=== PATIENT | female | born 1960 | race African-American/Black ===

== ENCOUNTER 2016-09-07 12:39 | Inpatient (IN) | payer OTHER ==
[2016-09-07 14:02] VITALS: BMI 26.6
--- NOTE | 2016-09-07 16:35 | HP ---
CIWA Score - CIWA Score Nausea/Vomitin-Mild Nausea/No Vomiting Muscle Tremors: 4-Moderate,w/Arms Extend Anxiety: 4-Mod. Anxious/Guarded Agitation: 4-Moderately Restless Paroxysmal Sweats: 2 Orientation: 0-Oriented (patient treated at [facility] , DISCHARGED 09/07/16) Tacttile Disturbances: 3-Moderate Itch/Numb/Burn Auditory Disturbances: 0-None Visual Disturbances: 0-None Headache: 0-None Present CIWA-Ar Total Score: 18 Admission ROS S - HPI Chief Complaint: WITHDRAWAL SX Allergies/Adverse Reactions: Allergies Allergy/AdvReac Type Severity Reaction Status Date / Time aspirin Allergy Severe Hives Verified 09/07/16 16:03 divalproex sodium Allergy Severe Verified 09/07/16 16:03 [From Depakote] risperidone [From Risperdal] Allergy Severe Verified 09/07/16 16:03 History of Present Illness: 56 YEARS OLD FEMALE WITH LONG HISTORY OF ALCOHOL NICOTINE DEPENDENCE, HAS DIABETES II, HYPERTENSION, HIV, HEPATITIS C, ASTHMA SEIZURE AND BIPOLAR, LONGEST SOBRIETY 6 YEARS IS ADMITTED TO DETOX Exam Limitations: No Limitations - Ebola screening Have you traveled outside of the country in the last 21 days: No Have you had contact with anyone from an Ebola affected area: No Have you been sick,other than usual withdrawal symptoms: No Do you have a fever: No - Review of Systems Constitutional: Chills, Changes in sleep EENT: reports: Hearing Loss (LEFT EAR), Dental Problems (POOR DENTITION), Other (HISTORY OF LEFT EYE CATARACT, 2013 LENS PLACEMENT) Respiratory: reports: Cough, SOB with Exertion Cardiac: reports: Palpitations GI: reports: Diarrhea, Poor Fluid Intake, Indigestion, Abdominal cramping : reports: No Symptoms Reported Musculoskeletal: reports: No Symptoms Reported Integumentary: reports: Pruritus (ON AND OFF X "YEARS") Neuro: reports: Seizure (1994 TREATED LAST EPISODE 09/06/16), Tremors Endocrine: reports: No Symptoms Reported Hematology: reports: No Symptoms Reported Psychiatric: reports: Judgement Intact, Anxious, Depressed Other Systems: Reviewed and Negative Patient History - Patient Medical History Hx Anemia: No Hx Asthma: Yes Hx Chronic Obstructive Pulmonary Disease (COPD): No Hx Cancer: No Hx Cardiac Disorders: No Hx Congestive Heart Failure: No Hx Hypertension: Yes (on meds.) Hx Hypercholesterolemia: No Hx Pacemaker: No HX Cerebrovascular Accident: No Hx Seizures: Yes (last seizure in 2014) Hx Dementia: No Hx Diabetes: Yes Hx Gastrointestinal Disorders: Yes Hx Liver Disease: No Hx Genitourinary Disorders: No Hx Sexually Transmitted Disorders: No Hx Renal Disease (ESRD): No Hx Hepatitis C: Yes Hx Depression: No Hx Suicide Attempt: Yes (Tried to hang herself in 2014) Hx Bipolar Disorder: No Hx Schizophrenia: Yes - Patient Surgical History Past Surgical History: Yes Hx Neurologic Surgery: No Hx Cataract Extraction: Yes (L EYE) Hx Cardiac Surgery: No Hx Lung Surgery: No Hx Breast Surgery: No Hx Breast Biopsy: No Hx Abdominal Surgery: No Hx Appendectomy: No Hx Cholecystectomy: No Hx Genitourinary Surgery: No Hx Section: No Hx Orthopedic Surgery: No Hx Hysterectomy: No Anesthesia Reaction: No - PPD History Previous Implant?: Yes Documented Results: Negative w/o proof Implanted On Prior R Admission?: No PPD to be Administered?: Yes - Reproductive History Patient is a Female of Child Bearing Age (11 -55 yrs old): No Patient : No - Smoking Cessation Smoking history: Current every day smoker Have you smoked in the past 12 months: Yes Aproximately how many cigarettes per day: 10 Cigars Per Day: 0 Hx Chewing Tobacco Use: No Initiated information on smoking cessation: Yes 'Breaking Loose' booklet given: 09/07/16 - Substance & Tx. History Hx Alcohol Use: Yes Hx Substance Use: No Substance Use Type: Alcohol Hx Substance Use Treatment: Yes - Substances Abused Alcohol Route: Oral Frequency: Daily Amount used: FIFTH OF VODKA/ 3-4 40 OZ BEERS Age of first use: 54 Date of Last Use: 09/06/16 Family Disease History - Family Disease History Family Disease History: Diabetes: Mother (WISAM), Sister, Heart Disease: Father, CA: Sister, Respiratory: Sister, Other: Mother Admission Physical Exam [facility] - Vital Signs Vital Signs: Vital Signs - 24 hr 09/07/16 13:59 Temperature 97.0 F L Pulse Rate 102 H Respiratory 20 Rate Blood Pressure 157/107 - Physical General Appearance: Yes: Nourished, Appropriately Dressed, Mild Distress, Tremorous, Irritable, Sweating, Anxious HEENTM: Yes: Hearing grossly Normal, Normal ENT Inspection, Normocephalic, Normal Voice Respiratory: Yes: Chest Non-Tender, Lungs Clear, Normal Breath Sounds, No Respiratory Distress, No Accessory Muscle Use Neck: Yes: Supple, Trachea in good position Breast: Yes: Breasts Symetrical Cardiology: Yes: Regular Rhythm, S1, S2, Tachycardia Abdominal: Yes: Within Normal Limits Genitourinary: Yes: Within Normal Limits Back: Yes: Normal Inspection Musculoskeletal: Yes: full range of Motion, Gait Steady Extremities: Yes: Normal Inspection, Normal Range of Motion, Non-Tender, Tremors Neurological: Yes: Alert, Motor Strength 5/5, Normal Response, Numbness ( DIABETES NEUROPATHY), Depressed Affect Integumentary: Yes: Warm, Moist Lymphatic: Yes: Within Normal Limits - Diagnostic (1) Alcohol dependence with uncomplicated withdrawal Current Visit: Yes Status: Acute (2) Diabetes mellitus type II, controlled Current Visit: Yes Status: Acute Qualifiers: Diabetes mellitus complication status: with neurologic complications Diabetes mellitus complication detail: with polyneuropathy Diabetes mellitus mcc insulin use: with mcc use Qualified Code(s): E11.42 - Type 2 diabetes mellitus with diabetic polyneuropathy; Z79.4 - intermediate school teacher (current) use of insulin (3) Hypertension Current Visit: Yes Status: Acute Qualifiers: Hypertension type: essential hypertension Qualified Code(s): I10 - Essential (primary) hypertension (4) Nicotine dependence Current Visit: Yes Status: Acute Qualifiers: Nicotine product type: cigarettes Substance use status: uncomplicated Qualified Code(s): F17.210 - Nicotine dependence, cigarettes, uncomplicated (5) HIV (human immunodeficiency virus infection) Current Visit: Yes Status: Chronic (6) Hepatitis C antibody test positive Current Visit: Yes Status: Chronic (7) Asthma Current Visit: Yes Status: Acute Qualifiers: Asthma severity: mild intermittent Asthma complication type: with status asthmaticus Qualified Code(s): J45.22 - Mild intermittent asthma with status asthmaticus (8) Schizophrenia Current Visit: Yes Status: Suspected Qualifiers: Schizophrenia type: disorganized schizophrenia Qualified Code(s): F20.1 - Disorganized schizophrenia (9) Alcohol related seizure Current Visit: Yes Status: Resolved (10) GERD (gastroesophageal reflux disease) Current Visit: Yes Status: Acute Qualifiers: Esophagitis presence: without esophagitis Qualified Code(s): K21.9 - Gastro-esophageal reflux disease without esophagitis (11) Status post extracapsular cataract extraction of left eye Current Visit: Yes Status: Resolved Cleared for Admission [facility] - Detox or Rehab [facility] Level of Care: Medically Managed Detox Regimen/Protocol: Librium [facility] Breath Alcohol Content Breath Alcohol Content: 0 Urine Pregancy Test - Result Urine Test Results: Negative- NO Line Present Urine Drug Screen - Results Drug Screen Negative: No Urine Drug Screen Results: BZO-Benzodiazepines
[2016-09-07] MEDS ORDERED: MAGNESIUM HYDROX 2400MG/30ML ORAL SUSPENSION 30 ML CUP PO PRN (16:43)
[2016-09-07] MEDS ORDERED: P-EPHED 60MG/TRIPROLIDI 2.5MG TABLET PO PRN (16:43)
[2016-09-07] MEDS ORDERED: MAG HYDROX/AL HYDROX/SIMETH 30 ML UNIT-DOSE CUP PO PRN (16:43)
[2016-09-07] MEDS ORDERED: IBUPROFEN 400 MG TABLET (FP) PO PRN (16:43)
[2016-09-07] MEDS ORDERED: LOPERAMIDE HCL 2 MG CAPSULE PO PRN (16:43)
[2016-09-07] MEDS ORDERED: MENTHOL/PHENOL 1 EACH UD MM PRN (16:43)
[2016-09-07] MEDS ORDERED: NICOTINE POLACRILEX 2 MG GUM BC PRN (16:43)
[2016-09-07] MEDS ORDERED: guaiFENesin/D-METHORPHAN HB 10 ML UNIT-DOSE CUPS PO PRN (16:43)
[2016-09-07] MEDS ORDERED: MAGNESIUM CITRATE 300 ML BOTTLE PO PRN (16:43)
[2016-09-07] MEDS ORDERED: ALBUTEROL SO4 6.7 GM HFA INHALER IH PRN (16:48)
[2016-09-07] MEDS ORDERED: chlordiazePOXIDE HCL 25 MG CAPSULE PO ONE (17:15)
[2016-09-07] MEDS: LISINOPRIL 10 MG TABLET (FP) PO SCH (18:20)
[2016-09-07] MEDS: THIAMINE HCL 100 MG TABLET (FP) PO SCH (22:17)
[2016-09-07] MEDS: chlordiazePOXIDE HCL 25 MG CAPSULE PO SCH (22:17)
[2016-09-07] MEDS: diphenhydrAMINE HCL 50 MG CAPSULE PO PRN (22:17)
[2016-09-07] MEDS: RANITIDINE HCL 150 MG TABLET (FP) PO SCH (22:18)
[2016-09-07] MEDS: GABAPENTIN 100 MG CAPSULE (FP) PO SCH (22:18)
[2016-09-07] MEDS: INSULIN SLIDING SCALE (NOVOLOG) 1 VIAL SQ SCH (22:20)
[2016-09-07 23:20] LABS: URINE APPEARANCE SLCLOUDY; URINE BILIRUBIN NEGATIVE (NEGATIVE); URINE BLOOD NEGATIVE (NEGATIVE); URINE COLOR LTYELLOW; URINE GLUCOSE (UA) NEGATIVE (NEGATIVE); URINE KETONE NEGATIVE (NEGATIVE); URINE LEUK ESTERASE NEGATIVE (NEGATIVE); URINE NITRITE NEGATIVE (NEGATIVE); URINE PROTEIN NEGATIVE (NEGATIVE); URINE UROBILINOGEN NEGATIVE E.U./dl (0.2-1.0)
[2016-09-08] MEDS: ATENOLOL 50 MG TABLET (FP) PO SCH ×2 (00:01→10:17)
[2016-09-08] MEDS: hydrOXYzine PAMOATE 50 MG CAPSULE (FP) PO PRN ×2 (00:01→12:27)
[2016-09-08] MEDS: diphenhydrAMINE HCL 50 MG CAPSULE PO PRN (02:39)
[2016-09-08] MEDS: chlordiazePOXIDE HCL 25 MG CAPSULE PO SCH ×4 (05:26→22:15)
[2016-09-08] MEDS: GABAPENTIN 100 MG CAPSULE (FP) PO SCH ×3 (05:26→22:17)
[2016-09-08] MEDS: metFORMIN HCL 500 MG TABLET (FP) PO SCH ×2 (07:08→17:29)
[2016-09-08] MEDS: INSULIN SLIDING SCALE (NOVOLOG) 1 VIAL SQ SCH ×4 (07:08→22:17)
[2016-09-08 10:04] LABS: MCH 30.3 pg (25.7-33.7); MCHC 33.2 g/dl (32.0-36.0); MEAN CELL VOLUME 91.5 fl (80-96); MEAN PLT VOLUME 10.4 fl (7.5-11.1); PLATELET COUNT 98 K/MM3 (134-434); RDW 15.4 % (11.6-15.6); WHITE BLOOD COUNT 3.6 K/mm3 (4.0-10.0)
[2016-09-08] MEDS: PRENATAL VITAMINS W/ FOLIC ACID TABLET (FP) PO SCH (10:17)
[2016-09-08] MEDS: LISINOPRIL 10 MG TABLET (FP) PO SCH (10:17)
[2016-09-08] MEDS: RANITIDINE HCL 150 MG TABLET (FP) PO SCH ×2 (10:17→22:15)
[2016-09-08] MEDS: NICOTINE 14 MG/24 HOURS TOPICAL PATCH TD SCH (10:17)
[2016-09-08 10:47] LABS: ALBUMIN 2.9 g/dl (3.4-5.0); ALK PHOS 115 U/L (45-117); ANION GAP 8 (8-16); BILIRUBIN,TOTAL 0.2 mg/dL (0.2-1.0); CALCIUM 8.1 mg/dL (8.5-10.1); CO2 22 mmol/L (21-32); CREATININE 0.7 mg/dL (0.55-1.02); GLUCOSE,RANDOM 93 mg/dL (74-106); SGOT/AST 39 U/L (15-37); SGPT/ALT 23 U/L (12-78); TOT PROT 6.5 g/dl (6.4-8.2)
--- NOTE | 2016-09-08 11:44 | PN ---
[facility] CIWA - CIWA Score Nausea/Vomitin Muscle Tremors: 3 Anxiety: 3 Agitation: 3 Paroxysmal Sweats: 3 Orientation: 0-Oriented Tacttile Disturbances: 2-Mild Itch/Numbness/Burn Auditory Disturbances: 0-None Visual Disturbances: 0-None Headache: 0-None Present CIWA-Ar Total Score: 16 [facility] Progress Note (SOAP) Subjective: interrupted sleep, sweats, not good , diarrhea , stomach ache Objective: 09/08/16 11:42 Vital Signs Temperature 99.0 F 09/08/16 09:39 Pulse Rate 93 H 09/08/16 09:39 Respiratory Rate 18 09/08/16 09:39 Blood Pressure 143/103 09/08/16 09:39 O2 Sat by Pulse Oximetry (%) Laboratory Tests 09/07/16 09/07/16 09/08/16 16:24 23:00 05:25 WBC RBC Hgb Hct MCV MCHC RDW Plt Count MPV Sodium Potassium Chloride Carbon Dioxide Anion Gap BUN Creatinine Creat Clearance w eGFR POC Glucometer 92 130 Random Glucose Calcium Total Bilirubin AST ALT Alkaline Phosphatase Total Protein Albumin Urine Color Ltyellow Urine Appearance Slcloudy Urine pH 7.0 Ur Specific [place] 1.011 Urine Protein Negative Urine Glucose (UA) Negative Urine Ketones Negative Urine Blood Negative Urine Nitrite Negative Urine Bilirubin Negative Urine Urobilinogen Negative Ur Leukocyte Esterase Negative RPR Titer 09/08/16 09/08/16 09/08/16 07:00 07:00 07:00 WBC 3.6 L RBC 3.27 L Hgb 9.9 L Hct 29.9 L MCV 91.5 MCHC 33.2 RDW 15.4 Plt Count 98 L MPV 10.4 Sodium 142 Potassium 4.0 Chloride 112 H Carbon Dioxide 22 Anion Gap 8 BUN 18 Creatinine 0.7 Creat Clearance w eGFR > 60 POC Glucometer Random Glucose 93 Calcium 8.1 L Total Bilirubin 0.2 AST 39 H ALT 23 Alkaline Phosphatase 115 Total Protein 6.5 Albumin 2.9 L Urine Color Urine Appearance Urine pH Ur Specific [place] Urine Protein Urine Glucose (UA) Urine Ketones Urine Blood Urine Nitrite Urine Bilirubin Urine Urobilinogen Ur Leukocyte Esterase RPR Titer Nonreactive 09/08/16 11:06 WBC RBC Hgb Hct MCV MCHC RDW Plt Count MPV Sodium Potassium Chloride Carbon Dioxide Anion Gap BUN Creatinine Creat Clearance w eGFR POC Glucometer 119 Random Glucose Calcium Total Bilirubin AST ALT Alkaline Phosphatase Total Protein Albumin Urine Color Urine Appearance Urine pH Ur Specific [place] Urine Protein Urine Glucose (UA) Urine Ketones Urine Blood Urine Nitrite Urine Bilirubin Urine Urobilinogen Ur Leukocyte Esterase RPR Titer pt aox3 in nad ambulating Assessment: 09/08/16 11:43 withdrawl sx's Plan: cont. detox increase fluids imodium prn
[2016-09-08] MEDS: chlordiazePOXIDE HCL 25 MG CAPSULE PO PRN (14:37)
--- NOTE | 2016-09-08 15:05 | CONSULT ---
[facility] Psychiatric Consult - Data Date of interview: 09/08/16 Admission source: [facility] Identifying data: First admission to [facility] for this 56 y/o AA female seeking detox treatment on for alcohol dependence.Patient is , a mother of five,unemployed and currently deprived of her SSI benefits ( clerical issues). Substance Abuse History: - Smoking Cessation. Smoking history: Current every day smoker. Have you smoked in the past 12 months: Yes. Aproximately how many cigarettes per day: 10. Cigars Per Day: 0. Hx Chewing Tobacco Use: No. Initiated information on smoking cessation: Yes. 'Breaking Loose' booklet given : 09/07/16. - Substance & Tx. History. Hx Alcohol Use: Yes. Hx Substance Use : No. Substance Use Type: Alcohol. Hx Substance Use Treatment: Yes. - Substances Abused. Alcohol. Route: Oral. Frequency: Daily. Amount used: FIFTH OF VODKA/ 3-4 40 OZ BEERS. Age of first use: 54. Date of Last Use: 09/06. Confirmed by patient. Medical History: Significant for bronchial asthma,HIV infection,hepatitis C, hypertension,diabetes mellitus,seizure disorder (ictal episode as recently as a week ago) and a history of cataract extraction (left eye). Psychiatric History: Self-report of seven psychiatric hospitalizations.Diagnosed with Schizophrenia.Ms Day is known to [facility] (site of her [facility] care),other facilities in [place] and [place].She is on a regimen of zoloft 50 mg/day + seroquel 100 mg/ hs.Patient reports a history of multiple suicide via self-mutilation and hanging (last incident was three years ago). Physical/Sexual Abuse/Trauma History: Patient denies sexual abuse.She continues to be traumatized by incidents experienced during her 15 years of incarceration for homicide. Additional Comment: Urine Drug Screen Results: BZO-Benzodiazepines.Noted. Mental Status Exam - Mental Status Exam Alert and Oriented to: Time, Place, Person Cognitive Function: Good Patient Appearance: Well Groomed Mood: Sad, Withdrawn, Anxious, Apprehensive Affect: Mood Congruent Patient Behavior: Fatigued, Appropriate, Cooperative Speech Pattern: Clear, Appropriate Voice Loudness: Normal Thought Process: Intact, Goal Oriented Thought Disorder: Not Present Hallucinations: Denies Suicidal Ideation: Denies Homicidal Ideation: Denies Insight/Judgement: Fair Sleep: Poorly, Difficulty falling asleep Appetite: Fair Muscle strength/Tone: Normal Gait/Station: Normal Psychiatric Findings - Problem List ([place] 1, 2,3) (1) Alcohol dependence with uncomplicated withdrawal Current Visit: Yes Status: Acute (2) Nicotine dependence Current Visit: Yes Status: Acute Qualifiers: Nicotine product type: cigarettes Substance use status: uncomplicated Qualified Code(s): F17.210 - Nicotine dependence, cigarettes, uncomplicated (3) Diabetes mellitus type II, controlled Current Visit: Yes Status: Acute Qualifiers: Diabetes mellitus complication status: with neurologic complications Diabetes mellitus complication detail: with polyneuropathy 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 Qualified Code(s): E11.42 - Type 2 diabetes mellitus with diabetic polyneuropathy; Z79.4 - correction (current) use of insulin (4) Asthma Current Visit: Yes Status: Chronic Qualifiers: Asthma severity: mild intermittent Asthma complication type: with status asthmaticus Qualified Code(s): J45.22 - Mild intermittent asthma with status asthmaticus (5) GERD (gastroesophageal reflux disease) Current Visit: Yes Status: Chronic Qualifiers: Esophagitis presence: without esophagitis Qualified Code(s): K21.9 - Gastro-esophageal reflux disease without esophagitis (6) Hypertension Current Visit: Yes Status: Chronic Qualifiers: Hypertension type: essential hypertension Qualified Code(s): I10 - Essential (primary) hypertension (7) HIV (human immunodeficiency virus infection) Current Visit: Yes Status: Chronic (8) Hepatitis C antibody test positive Current Visit: Yes Status: Chronic (9) Schizophrenia Current Visit: Yes Status: Suspected Qualifiers: Schizophrenia type: disorganized schizophrenia Qualified Code(s): F20.1 - Disorganized schizophrenia (10) Alcohol related seizure Current Visit: Yes Status: Resolved (11) Status post extracapsular cataract extraction of left eye Current Visit: Yes Status: Resolved - Initial Treatment Plan Initial Treatment Plan: Psychoeducation.Detoxification.Medications :seroquel 100 mg po hs + zoloft 50 mg po daily.Side effects/benefits discussed with patient.She is agreement with this plan of care.Observation.
[2016-09-08] MEDS: QUEtiapine FUMARATE 100 MG TABLET (FP) PO SCH (22:15)
[2016-09-08] MEDS: THIAMINE HCL 100 MG TABLET (FP) PO SCH (22:15)
--- NOTE | 2016-09-08 23:23 | PN ---
[facility] Progress Note Note: bp 172/107 begin metoprolol 50 mg bid first dose now continue detox
[2016-09-08] MEDS ORDERED: METOPROLOL TARTRATE 50 MG TABLET (FP) PO SCH (23:30)
[2016-09-08] MEDS: METOPROLOL TARTRATE 50 MG TABLET (FP) PO SCH (23:30)
[2016-09-09] MEDS: chlordiazePOXIDE HCL 25 MG CAPSULE PO SCH ×3 (05:18→17:15)
[2016-09-09] MEDS: GABAPENTIN 100 MG CAPSULE (FP) PO SCH ×3 (05:18→22:21)
[2016-09-09] MEDS: INSULIN SLIDING SCALE (NOVOLOG) 1 VIAL SQ SCH ×4 (08:00→22:23)
[2016-09-09] MEDS: metFORMIN HCL 500 MG TABLET (FP) PO SCH ×2 (09:18→17:15)
[2016-09-09] MEDS: NICOTINE 14 MG/24 HOURS TOPICAL PATCH TD SCH (10:28)
[2016-09-09] MEDS: SERTRALINE HCL 50 MG TABLET (FP) PO SCH (10:28)
[2016-09-09] MEDS: PRENATAL VITAMINS W/ FOLIC ACID TABLET (FP) PO SCH (10:28)
[2016-09-09] MEDS: RANITIDINE HCL 150 MG TABLET (FP) PO SCH ×2 (10:28→22:21)
[2016-09-09] MEDS: METOPROLOL TARTRATE 50 MG TABLET (FP) PO SCH ×2 (10:28→22:21)
[2016-09-09] MEDS: LISINOPRIL 10 MG TABLET (FP) PO SCH ×2 (10:28→22:21)
[2016-09-09] MEDS: ACETAMINOPHEN 325 MG TABLET (FP) PO PRN (10:32)
--- NOTE | 2016-09-09 11:05 | PN ---
S CIWA - CIWA Score Nausea/Vomitin-No Nausea/No Vomiting Muscle Tremors: 4-Moderate,w/Arms Extend Anxiety: 3 Agitation: 4-Moderately Restless Paroxysmal Sweats: 3 Orientation: 0-Oriented Tacttile Disturbances: 0-None Auditory Disturbances: 0-None Visual Disturbances: 0-None Headache: 0-None Present CIWA-Ar Total Score: 14 [facility] Progress Note (SOAP) Subjective: agitation anxiety sweats shakes body aches Objective: 09/09/16 11:04 Vital Signs Temperature 99.0 F 09/09/16 09:41 Pulse Rate 97 H 09/09/16 09:41 Respiratory Rate 16 09/09/16 09:41 Blood Pressure 147/96 09/09/16 09:41 O2 Sat by Pulse Oximetry (%) Laboratory Tests 09/07/16 09/07/16 09/07/16 16:24 22:20 23:00 WBC RBC Hgb Hct MCV MCHC RDW Plt Count MPV Sodium Potassium Chloride Carbon Dioxide Anion Gap BUN Creatinine Creat Clearance w eGFR POC Glucometer 92 127 Random Glucose Calcium Total Bilirubin AST ALT Alkaline Phosphatase Total Protein Albumin Urine Color Ltyellow Urine Appearance Slcloudy Urine pH 7.0 Ur Specific [place] 1.011 Urine Protein Negative Urine Glucose (UA) Negative Urine Ketones Negative Urine Blood Negative Urine Nitrite Negative Urine Bilirubin Negative Urine Urobilinogen Negative Ur Leukocyte Esterase Negative RPR Titer 09/08/16 09/08/16 09/08/16 05:25 07:00 07:00 WBC 3.6 L RBC 3.27 L Hgb 9.9 L Hct 29.9 L MCV 91.5 MCHC 33.2 RDW 15.4 Plt Count 98 L MPV 10.4 Sodium 142 Potassium 4.0 Chloride 112 H Carbon Dioxide 22 Anion Gap 8 BUN 18 Creatinine 0.7 Creat Clearance w eGFR > 60 POC Glucometer 130 Random Glucose 93 Calcium 8.1 L Total Bilirubin 0.2 AST 39 H ALT 23 Alkaline Phosphatase 115 Total Protein 6.5 Albumin 2.9 L Urine Color Urine Appearance Urine pH Ur Specific [place] Urine Protein Urine Glucose (UA) Urine Ketones Urine Blood Urine Nitrite Urine Bilirubin Urine Urobilinogen Ur Leukocyte Esterase RPR Titer 09/08/16 09/08/16 09/08/16 07:00 11:06 16:28 WBC RBC Hgb Hct MCV MCHC RDW Plt Count MPV Sodium Potassium Chloride Carbon Dioxide Anion Gap BUN Creatinine Creat Clearance w eGFR POC Glucometer 119 112 Random Glucose Calcium Total Bilirubin AST ALT Alkaline Phosphatase Total Protein Albumin Urine Color Urine Appearance Urine pH Ur Specific [place] Urine Protein Urine Glucose (UA) Urine Ketones Urine Blood Urine Nitrite Urine Bilirubin Urine Urobilinogen Ur Leukocyte Esterase RPR Titer Nonreactive 09/09/16 06:20 WBC RBC Hgb Hct MCV MCHC RDW Plt Count MPV Sodium Potassium Chloride Carbon Dioxide Anion Gap BUN Creatinine Creat Clearance w eGFR POC Glucometer 115 Random Glucose Calcium Total Bilirubin AST ALT Alkaline Phosphatase Total Protein Albumin Urine Color Urine Appearance Urine pH Ur Specific [place] Urine Protein Urine Glucose (UA) Urine Ketones Urine Blood Urine Nitrite Urine Bilirubin Urine Urobilinogen Ur Leukocyte Esterase RPR Titer awake/alert ambulating no acute distress Assessment: 09/09/16 11:05 withdrawal sx Plan: continue detox increase fluids analgesic balm motrin 600mg prn
[2016-09-09] MEDS: ATENOLOL 50 MG TABLET (FP) PO SCH (11:11)
--- NOTE | 2016-09-09 12:31 | EKG ---
Test Reason : Blood Pressure : / mmHG Vent. Rate : 095 BPM Atrial Rate : 095 BPM P-R Int : 156 ms QRS Dur : 070 ms QT Int : 352 ms P-R-T Axes : 057 028 026 degrees QTc Int : 442 ms NORMAL SINUS RHYTHM NORMAL ECG NO PREVIOUS ECGS AVAILABLE Confirmed by FAY CURRAN, CONG ([id number]) on 09/09/2016 12:31:14 PM Referred By: Confirmed By:CONG APONTE MD
[2016-09-09] MEDS: chlordiazePOXIDE HCL 25 MG CAPSULE PO PRN (14:02)
[2016-09-09] MEDS: chlordiazePOXIDE 5 MG CAPSULE PO SCH (22:20)
[2016-09-09] MEDS: QUEtiapine FUMARATE 100 MG TABLET (FP) PO SCH (22:21)
[2016-09-09] MEDS: THIAMINE HCL 100 MG TABLET (FP) PO SCH (22:21)
[2016-09-10] MEDS: chlordiazePOXIDE 5 MG CAPSULE PO SCH ×3 (06:18→17:32)
[2016-09-10] MEDS: GABAPENTIN 100 MG CAPSULE (FP) PO SCH ×4 (06:21→22:04)
[2016-09-10] MEDS: INSULIN SLIDING SCALE (NOVOLOG) 1 VIAL SQ SCH ×4 (07:01→22:05)
[2016-09-10] MEDS: metFORMIN HCL 500 MG TABLET (FP) PO SCH ×2 (07:02→17:32)
[2016-09-10] MEDS: cloNIDine HCL 0.1 MG TABLET PO PRN ×2 (07:51→22:04)
[2016-09-10] MEDS: PRENATAL VITAMINS W/ FOLIC ACID TABLET (FP) PO SCH (10:05)
[2016-09-10] MEDS: METOPROLOL TARTRATE 50 MG TABLET (FP) PO SCH ×2 (10:05→22:04)
[2016-09-10] MEDS: RANITIDINE HCL 150 MG TABLET (FP) PO SCH ×2 (10:06→22:03)
[2016-09-10] MEDS: LISINOPRIL 10 MG TABLET (FP) PO SCH ×2 (10:06→22:04)
[2016-09-10] MEDS: ATENOLOL 50 MG TABLET (FP) PO SCH (10:06)
[2016-09-10] MEDS: SERTRALINE HCL 50 MG TABLET (FP) PO SCH (10:06)
[2016-09-10] MEDS: NICOTINE 14 MG/24 HOURS TOPICAL PATCH TD SCH (10:08)
--- NOTE | 2016-09-10 12:45 | PN ---
S Progress Note (SOAP) Objective: 09/10/16 12:44 INTERRUPTED SLEEP 09/10/16 12:44 Vital Signs Temperature 97.7 F 09/10/16 10:05 Pulse Rate 91 H 09/10/16 10:05 Respiratory Rate 18 09/10/16 10:05 Blood Pressure 155/89 09/10/16 10:05 O2 Sat by Pulse Oximetry (%) Laboratory Tests 09/07/16 09/07/16 09/07/16 16:24 22:20 23:00 WBC RBC Hgb Hct MCV MCHC RDW Plt Count MPV Sodium Potassium Chloride Carbon Dioxide Anion Gap BUN Creatinine Creat Clearance w eGFR POC Glucometer 92 127 Random Glucose Calcium Total Bilirubin AST ALT Alkaline Phosphatase Total Protein Albumin Urine Color Ltyellow Urine Appearance Slcloudy Urine pH 7.0 Ur Specific [place] 1.011 Urine Protein Negative Urine Glucose (UA) Negative Urine Ketones Negative Urine Blood Negative Urine Nitrite Negative Urine Bilirubin Negative Urine Urobilinogen Negative Ur Leukocyte Esterase Negative RPR Titer 09/08/16 09/08/16 09/08/16 05:25 07:00 07:00 WBC 3.6 L RBC 3.27 L Hgb 9.9 L Hct 29.9 L MCV 91.5 MCHC 33.2 RDW 15.4 Plt Count 98 L MPV 10.4 Sodium 142 Potassium 4.0 Chloride 112 H Carbon Dioxide 22 Anion Gap 8 BUN 18 Creatinine 0.7 Creat Clearance w eGFR > 60 POC Glucometer 130 Random Glucose 93 Calcium 8.1 L Total Bilirubin 0.2 AST 39 H ALT 23 Alkaline Phosphatase 115 Total Protein 6.5 Albumin 2.9 L Urine Color Urine Appearance Urine pH Ur Specific [place] Urine Protein Urine Glucose (UA) Urine Ketones Urine Blood Urine Nitrite Urine Bilirubin Urine Urobilinogen Ur Leukocyte Esterase RPR Titer 09/08/16 09/08/16 09/08/16 07:00 11:06 16:28 WBC RBC Hgb Hct MCV MCHC RDW Plt Count MPV Sodium Potassium Chloride Carbon Dioxide Anion Gap BUN Creatinine Creat Clearance w eGFR POC Glucometer 119 112 Random Glucose Calcium Total Bilirubin AST ALT Alkaline Phosphatase Total Protein Albumin Urine Color Urine Appearance Urine pH Ur Specific [place] Urine Protein Urine Glucose (UA) Urine Ketones Urine Blood Urine Nitrite Urine Bilirubin Urine Urobilinogen Ur Leukocyte Esterase RPR Titer Nonreactive 09/09/16 09/09/16 09/09/16 06:20 11:19 16:34 WBC RBC Hgb Hct MCV MCHC RDW Plt Count MPV Sodium Potassium Chloride Carbon Dioxide Anion Gap BUN Creatinine Creat Clearance w eGFR POC Glucometer 115 118 110 Random Glucose Calcium Total Bilirubin AST ALT Alkaline Phosphatase Total Protein Albumin Urine Color Urine Appearance Urine pH Ur Specific [place] Urine Protein Urine Glucose (UA) Urine Ketones Urine Blood Urine Nitrite Urine Bilirubin Urine Urobilinogen Ur Leukocyte Esterase RPR Titer 09/09/16 09/10/16 09/10/16 22:19 06:18 11:25 WBC RBC Hgb Hct MCV MCHC RDW Plt Count MPV Sodium Potassium Chloride Carbon Dioxide Anion Gap BUN Creatinine Creat Clearance w eGFR POC Glucometer 102 109 100 Random Glucose Calcium Total Bilirubin AST ALT Alkaline Phosphatase Total Protein Albumin Urine Color Urine Appearance Urine pH Ur Specific [place] Urine Protein Urine Glucose (UA) Urine Ketones Urine Blood Urine Nitrite Urine Bilirubin Urine Urobilinogen Ur Leukocyte Esterase RPR Titer PT AOX3 IN NAD AMBULATING Assessment: 09/10/16 12:45 WITHDRAWL SX;S HTN Plan: CONT. DETOX INCREASE FLUDS D/C IN AM AT 7AM NORVASC 5MG /D
[2016-09-10] MEDS ORDERED: amLODIPine BESYLATE 5 MG TABLET (FP) PO ONE (12:46)
[2016-09-10] MEDS: chlordiazePOXIDE HCL 25 MG CAPSULE PO PRN (15:09)
[2016-09-10] MEDS: ACETAMINOPHEN 325 MG TABLET (FP) PO PRN ×2 (15:09→22:05)
[2016-09-10] MEDS: chlordiazePOXIDE HCL 10 MG CAPSULE PO SCH (22:02)
[2016-09-10] MEDS: QUEtiapine FUMARATE 100 MG TABLET (FP) PO SCH (22:03)
[2016-09-10] MEDS: THIAMINE HCL 100 MG TABLET (FP) PO SCH (22:07)
[2016-09-10 22:43] VITALS: BP 144/87; PULSE 95; TEMP 98.2
[2016-09-11] MEDS: chlordiazePOXIDE HCL 10 MG CAPSULE PO SCH (05:40)
[2016-09-11] MEDS: ACETAMINOPHEN 325 MG TABLET (FP) PO PRN (05:41)
[2016-09-11] MEDS: GABAPENTIN 100 MG CAPSULE (FP) PO SCH (06:37)
[2016-09-11] MEDS: metFORMIN HCL 500 MG TABLET (FP) PO SCH (06:37)
[2016-09-11] MEDS: METOPROLOL TARTRATE 50 MG TABLET (FP) PO SCH (06:38)
[2016-09-11] MEDS: LISINOPRIL 10 MG TABLET (FP) PO SCH (06:38)
[2016-09-11] MEDS: ATENOLOL 50 MG TABLET (FP) PO SCH (06:38)
[2016-09-11] MEDS ORDERED: amLODIPine BESYLATE 5 MG TABLET (FP) PO SCH (10:00)
--- NOTE | 2016-09-11 11:25 | DS ---
[facility] Detox Discharge Summary Admission Date: 09/07/16 Discharge Date: 09/11/16 - History Present History: Alcohol Dependence - Physical Exam Results Vital Signs: Vital Signs Temperature 98.2 F 09/10/16 22:42 Pulse Rate 95 H 09/10/16 22:42 Respiratory Rate 18 09/11/16 00:30 Blood Pressure 144/87 09/10/16 22:42 O2 Sat by Pulse Oximetry (%) - Treatment Hospital Course: Detox Protocol Followed, Detoxed Safely, Responded well, Discharged Condition Good, Rehab Referral Accepted - Medication Discharge Medications: Ambulatory Orders Atenolol [Tenormin -] 50 mg PO DAILY 09/07/16 Clonidine HCl [Catapres -] 0.3 mg PO DAILY 09/07/16 Lisinopril [Prinivil] 10 mg PO DAILY 09/07/16 Metformin HCl [Glucophage -] 500 mg PO BID 09/07/16 Metoprolol Tartrate [Lopressor] 100 mg PO DAILY 09/07/16 Quetiapine Fumarate [Seroquel -] 100 mg PO HS 09/07/16 Sertraline HCl [Zoloft -] 50 mg PO DAILY 09/07/16 Zonisamide [Zonegran -] 300 mg PO DAILY 09/07/16 Quetiapine Fumarate [Seroquel] 100 mg PO HS #30 tablet 09/08/16 Sertraline HCl [Zoloft -] 50 mg PO DAILY #30 tablet 09/08/16 Albuterol Sulfate Inhaler - [Ventolin HFA Inhaler -] 2 puff IH Q4H PRN #1 inhaler 09/10/16 Amlodipine Besylate [Norvasc -] 5 mg PO DAILY #30 tablet 09/10/16 Gabapentin [Neurontin -] 100 mg PO TID #60 capsule 09/10/16 Lisinopril [Prinivil] 10 mg PO BID #60 tablet 09/10/16 Metformin HCl [Glucophage -] 500 mg PO BID@0700,1630 #60 tablet 09/10/16 Metoprolol Tartrate [Lopressor -] 50 mg PO BID #60 tablet 09/10/16 Ranitidine [Zantac -] 150 mg PO BID #60 tablet 09/10/16 - Diagnosis (1) Alcohol dependence with uncomplicated withdrawal Status: Chronic (2) Diabetes mellitus type II, controlled Status: Chronic Qualifiers: Diabetes mellitus complication status: with neurologic complications Diabetes mellitus complication detail: with polyneuropathy 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: with [facility] use Qualified Code(s): E11.42 - Type 2 diabetes mellitus with diabetic polyneuropathy; Z79.4 - halfway (current) use of insulin (3) Nicotine dependence Status: Chronic Qualifiers: Nicotine product type: cigarettes Substance use status: uncomplicated Qualified Code(s): F17.210 - Nicotine dependence, cigarettes, uncomplicated (4) Asthma Status: Chronic Qualifiers: Asthma severity: mild intermittent Asthma complication type: with status asthmaticus Qualified Code(s): J45.22 - Mild intermittent asthma with status asthmaticus (5) GERD (gastroesophageal reflux disease) Status: Chronic Qualifiers: Esophagitis presence: without esophagitis Qualified Code(s): K21.9 - Gastro-esophageal reflux disease without esophagitis (6) HIV (human immunodeficiency virus infection) Status: Chronic (7) Hepatitis C antibody test positive Status: Chronic (8) Hypertension Status: Chronic Qualifiers: Hypertension type: essential hypertension Qualified Code(s): I10 - Essential (primary) hypertension (9) Schizophrenia Status: Suspected Qualifiers: Schizophrenia type: disorganized schizophrenia Qualified Code(s): F20.1 - Disorganized schizophrenia - AMA Did Patient Leave Against Medical Advice: No
== END 2016-09-11 07:00 | disposition home or self-care (01) | DRG 775 ==
LOC: YASAS 12:39 → Y6N 16:45
PROVIDERS: ADMIT Internal Medicine Addiction Medicine; ATTEND Internal Medicine Addiction Medicine
PROC: HZ2ZZZZ Detoxification Services for Substance Abuse Treatment (ICD-10-PCS; principal; 2016-09-07)
DX: F10.230 Alcohol dependence with withdrawal, uncomplicated (principal); F17.210 Nicotine dependence, cigarettes, uncomplicated; F20.1 Disorganized schizophrenia; E11.42 Type 2 diabetes mellitus with diabetic polyneuropathy; Z79.4 Long term (current) use of insulin; J45.22 Mild intermittent asthma with status asthmaticus; K21.9 Gastro-esophageal reflux disease without esophagitis; Z21 Asymptomatic human immunodeficiency virus [HIV] infection status; R00.0 Tachycardia, unspecified; Z98.42 Cataract extraction status, left eye; Z86.69 Personal history of other diseases of the nervous system and sense organs; Z91.5 Personal history of self-harm
CPT/HCPCS: 36415; 80053; 81003; 85027; 86593; 93005; 93010

== ENCOUNTER 2019-02-28 11:28 | Inpatient (IN) | payer OTHER ==
[2019-02-28 13:08] VITALS: BMI 25.8
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
[2019-02-28] MEDS ORDERED: cloNIDine HCL 0.1 MG TABLET PO PRN (14:54)
[2019-02-28] MEDS ORDERED: chlordiazePOXIDE HCL 10 MG CAPSULE PO PRN (14:55)
[2019-02-28] MEDS ORDERED: ACETAMINOPHEN 325 MG TABLET (FP) PO PRN (15:00)
[2019-02-28] MEDS ORDERED: NICOTINE POLACRILEX 2 MG GUM BUC PRN (15:00)
[2019-02-28] MEDS ORDERED: MELATONIN 5 MG TABLETS PO PRN (15:00)
[2019-02-28] MEDS ORDERED: MAGNESIUM HYDROX 2400MG/30ML ORAL SUSPENSION 30 ML CUP PO PRN (15:00)
[2019-02-28] MEDS ORDERED: hydrOXYzine HCL 25 MG TABLET (FP) PO PRN (15:00)
[2019-02-28] MEDS ORDERED: ALBUTEROL SO4 8 GM HFA INHALER IH PRN (15:08)
[2019-02-28] MEDS ORDERED: METHADONE HCL 10 MG TABLET (FOR DETOX USE ONLY) PO ONE (16:00)
[2019-02-28] MEDS ORDERED: PATIENT'S OWN MEDICATION (NON-FORMULARY) (Lipase/Protease/Amylase [Creon Dr 24,000 Units C PO SCH (16:30)
[2019-02-28] MEDS ORDERED: LIPASE/PROTEASE/AMYLASE 36,000 UNIT CAPSULE PO SCH (16:32)
[2019-02-28] MEDS: INSULIN SLIDING SCALE (NOVOLOG) 1 VIAL SQ SCH ×2 (16:36→22:06)
[2019-02-28] MEDS: chlordiazePOXIDE HCL 25 MG CAPSULE PO SCH ×2 (17:01→22:04)
[2019-02-28 17:05] LABS: HEMATOCRIT 29.2 % (32.4-45.2); HEMOGLOBIN 9.7 GM/dL (10.7-15.3); MCH 30.8 pg (25.7-33.7); MCHC 33.2 g/dl (32.0-36.0); MEAN CELL VOLUME 92.6 fl (80-96); MEAN PLT VOLUME 8.9 fl (7.5-11.1); PLATELET COUNT 90 K/MM3 (134-434); RBC 3.16 M/mm3 (3.60-5.2); WHITE BLOOD COUNT 3.8 K/mm3 (4.0-10.0)
[2019-02-28 17:10] LABS: ALBUMIN 3.1 g/dl (3.4-5.0); BILIRUBIN,TOTAL 0.3 mg/dL (0.2-1); BLOOD UREA NITROGEN 16.7 mg/dL (7-18); CALCIUM 8.5 mg/dL (8.5-10.1); POTASSIUM 3.8 mmol/L (3.5-5.1); TOT PROT 7.6 g/dl (6.4-8.2)
[2019-02-28] MEDS: amLODIPine BESYLATE 10 MG TABLET (FP) PO SCH (20:22)
[2019-02-28] MEDS: ATENOLOL 50 MG TABLET (FP) PO SCH (20:22)
[2019-02-28 21:09] LABS: URINE APPEARANCE CLOUDY; URINE BILIRUBIN NEGATIVE (NEGATIVE); URINE COLOR DK YELLOW; URINE GLUCOSE (UA) NEGATIVE (NEGATIVE); URINE KETONE NEGATIVE (NEGATIVE); URINE LEUK ESTERASE NEGATIVE (NEGATIVE); URINE NITRITE NEGATIVE (NEGATIVE); URINE PROTEIN TRACE (NEGATIVE)
[2019-02-28 21:11] LABS: HCG,QUALITATIVE URINE Negative
[2019-02-28] MEDS: THIAMINE HCL 100 MG TABLET (FP) PO SCH (22:04)
[2019-02-28] MEDS: ELVITEG/COB/EMTRI/TENOFO (STRIBILD) TABLET -NF PO SCH (22:05)
[2019-02-28] MEDS: ZONISAMIDE 100 MG CAPSULE PO SCH (22:06)
[2019-03-01] MEDS: chlordiazePOXIDE HCL 25 MG CAPSULE PO SCH ×3 (06:51→22:13)
[2019-03-01] MEDS: INSULIN SLIDING SCALE (NOVOLOG) 1 VIAL SQ SCH ×4 (06:54→22:12)
[2019-03-01] MEDS: LIPASE/PROTEASE/AMYLASE 36,000 UNIT CAPSULE PO SCH ×3 (07:56→17:00)
[2019-03-01] MEDS ORDERED: METHADONE HCL 10 MG TABLET (FOR DETOX USE ONLY) ONE (08:22)
[2019-03-01] MEDS ORDERED: METHADONE HCL 5 MG TABLET (FOR DETOX USE ONLY) ONE (08:22)
[2019-03-01] MEDS ORDERED: METHADONE (DETOX) 20 MG, METHADONE (DETOX) 5 MG PO ONE (10:00)
[2019-03-01] MEDS ORDERED: ATENOLOL 50 MG TABLET (FP) PO SCH (10:00)
[2019-03-01] MEDS ORDERED: amLODIPine BESYLATE 10 MG TABLET (FP) PO SCH (10:00)
[2019-03-01] MEDS: ATENOLOL 50 MG TABLET (FP) PO SCH (10:35)
[2019-03-01] MEDS: amLODIPine BESYLATE 10 MG TABLET (FP) PO SCH (10:35)
[2019-03-01] MEDS: LISINOPRIL 20 MG TABLET (FP) PO SCH (10:35)
[2019-03-01] MEDS: PRENATAL VITAMINS W/ FOLIC ACID TABLET (FP) PO SCH (10:35)
[2019-03-01] MEDS: MENTHOL/PHENOL 1 EACH UD MM PRN ×2 (10:37→22:17)
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
--- NOTE | 2019-03-01 16:16 | PN ---
S CIWA - CIWA Score Nausea/Vomitin-Mild Nausea/No Vomiting Muscle Tremors: 2 Anxiety: 2 Agitation: 2 Paroxysmal Sweats: 1-Minimal Palms Moist Orientation: 0-Oriented Tacttile Disturbances: 0-None Auditory Disturbances: 0-None Visual Disturbances: 0-None Headache: 0-None Present CIWA-Ar Total Score: 8 BHS COWS - Scale Resting Pulse: 1= [place] 81-100 Sweatin= Chills/Flushing Restless Observation: 1= Difficult to Sit Still Pupil Size: 0= Normal to Room Light Bone or Joint Aches: 1= Mild Discomfort Runny Nose/ Eye Tearin= None GI Upset > 30mins: 2= Nausea/Diarrhea Tremor Observation of Outstretched Hands: 1= Tremor [place], Not Seen Yawning Observation: 0= None Anxiety or Irritability: 1=Feels Anxious/Irritable Goose Flesh Skin: 0=Smooth Skin COWS Score: 8 S Progress Note (SOAP) Subjective: patient requests glucerna for poor appetitis denies vomiting bp systolic control from 160-130 continue amlodipin Objective: 03/01/19 16:18 Vital Signs Temperature 99.2 F 03/01/19 13:18 Pulse Rate 86 03/01/19 13:18 Respiratory Rate 18 03/01/19 13:18 Blood Pressure 131/84 03/01/19 13:18 O2 Sat by Pulse Oximetry (%) Laboratory Last Values WBC 3.8 K/mm3 (4.0-10.0) L 02/28/19 15:30 RBC 3.16 M/mm3 (3.60-5.2) L 02/28/19 15:30 Hgb 9.7 GM/dL (10.7-15.3) L 02/28/19 15:30 Hct 29.2 % (32.4-45.2) L 02/28/19 15:30 MCV 92.6 fl (80-96) 02/28/19 15:30 MCH 30.8 pg (25.7-33.7) 02/28/19 15:30 MCHC 33.2 g/dl (32.0-36.0) 02/28/19 15:30 RDW 15.0 % (11.6-15.6) 02/28/19 15:30 Plt Count 90 K/MM3 (134-434) L 02/28/19 15:30 MPV 8.9 fl (7.5-11.1) D 02/28/19 15:30 Sodium 145 mmol/L (136-145) 02/28/19 15:30 Potassium 3.8 mmol/L (3.5-5.1) 02/28/19 15:30 Chloride 112 mmol/L (98-107) H 02/28/19 15:30 Carbon Dioxide 26 mmol/L (21-32) 02/28/19 15:30 Anion Gap 7 MMOL/L (8-16) L 02/28/19 15:30 BUN 16.7 mg/dL (7-18) 02/28/19 15:30 Creatinine 1.0 mg/dL (0.55-1.3) 02/28/19 15:30 Est GFR (CKD-EPI)AfAm 71.41 02/28/19 15:30 Est GFR (CKD-EPI)NonAf 61.62 02/28/19 15:30 POC Glucometer 126 UNITS (80-120) 03/01/19 11:24 Random Glucose 106 mg/dL (74-106) 02/28/19 15:30 Calcium 8.5 mg/dL (8.5-10.1) 02/28/19 15:30 Total Bilirubin 0.3 mg/dL (0.2-1) 02/28/19 15:30 AST 42 U/L (15-37) H 02/28/19 15:30 ALT 32 U/L (13-61) 02/28/19 15:30 Alkaline Phosphatase 137 U/L (45-117) H 02/28/19 15:30 Total Protein 7.6 g/dl (6.4-8.2) 02/28/19 15:30 Albumin 3.1 g/dl (3.4-5.0) L 02/28/19 15:30 Urine Color Dk yellow 02/28/19 15:57 Urine Appearance Cloudy 02/28/19 15:57 Urine pH 6.0 (5.0-8.0) 02/28/19 15:57 Ur Specific [place] 1.023 (1.010-1.035) 02/28/19 15:57 Urine Protein Trace (NEGATIVE) 02/28/19 15:57 Urine Glucose (UA) Negative (NEGATIVE) 02/28/19 15:57 Urine Ketones Negative (NEGATIVE) 02/28/19 15:57 Urine Blood Negative (NEGATIVE) 02/28/19 15:57 Urine Nitrite Negative (NEGATIVE) 02/28/19 15:57 Urine Bilirubin Negative (NEGATIVE) 02/28/19 15:57 Urine Urobilinogen 1.0 mg/dL (0.2-1.0) 02/28/19 15:57 Ur Leukocyte Esterase Negative (NEGATIVE) 02/28/19 15:57 Urine HCG, Qual Negative 02/28/19 15:57 RPR Titer Nonreactive (NONREACTIVE) 02/28/19 15:30 lab noted Assessment: 03/01/19 16:19 alcohol and opiate withdrawal sx Plan: continue alcohol and opiate detox
[2019-03-01] MEDS: ACETAMINOPHEN 325 MG TABLET (FP) PO PRN (17:01)
[2019-03-01] MEDS: ELVITEG/COB/EMTRI/TENOFO (STRIBILD) TABLET -NF PO SCH (22:13)
[2019-03-01] MEDS: ZONISAMIDE 100 MG CAPSULE PO SCH (22:13)
[2019-03-01] MEDS: THIAMINE HCL 100 MG TABLET (FP) PO SCH (22:14)
[2019-03-01] MEDS: QUEtiapine FUMARATE 200 MG TABLET PO SCH (22:15)
[2019-03-02] MEDS: chlordiazePOXIDE 5 MG CAPSULE PO SCH ×3 (05:49→22:21)
[2019-03-02] MEDS: LIPASE/PROTEASE/AMYLASE 36,000 UNIT CAPSULE PO SCH ×3 (07:27→16:54)
[2019-03-02] MEDS: INSULIN SLIDING SCALE (NOVOLOG) 1 VIAL SQ SCH ×4 (08:27→21:26)
[2019-03-02] MEDS ORDERED: METHADONE HCL 10 MG TABLET (FOR DETOX USE ONLY) PO ONE (10:00)
--- NOTE | 2019-03-02 10:30 | PN ---
[facility] CIWA - CIWA Score Nausea/Vomitin-No Nausea/No Vomiting Muscle Tremors: 3 Anxiety: 2 Agitation: 2 Paroxysmal Sweats: No Perspiration Orientation: 0-Oriented Tacttile Disturbances: 0-None Auditory Disturbances: 0-None Visual Disturbances: 0-None Headache: 0-None Present CIWA-Ar Total Score: 7 BHS COWS - Scale Resting Pulse: 0= [place] 80 or Below Sweatin= Chills/Flushing Restless Observation: 0= Sits Still Pupil Size: 0= Normal to Room Light Bone or Joint Aches: 1= Mild Discomfort Runny Nose/ Eye Tearin= Nasal Congestion GI Upset > 30mins: 1= Stomach Cramp Tremor Observation of Outstretched Hands: 1= Tremor [place], Not Seen Yawning Observation: 1= 1-2x During Session Anxiety or Irritability: 1=Feels Anxious/Irritable Goose Flesh Skin: 0=Smooth Skin COWS Score: 7 S Progress Note (SOAP) Subjective: patient is doing well wtih librium and methadone detox regimen tolerate bactrim ds bid for uti patient demands to take home medication of antihypertensant and antidiabetic medications discuss bp and bgm reading informed risks of low bp and low glucose serum Objective: 03/02/19 10:34 Vital Signs Temperature 98.1 F 03/02/19 09:22 Pulse Rate 78 03/02/19 09:22 Respiratory Rate 18 03/02/19 09:22 Blood Pressure 111/73 03/02/19 09:22 O2 Sat by Pulse Oximetry (%) Laboratory Last Values WBC 3.8 K/mm3 (4.0-10.0) L 02/28/19 15:30 RBC 3.16 M/mm3 (3.60-5.2) L 02/28/19 15:30 Hgb 9.7 GM/dL (10.7-15.3) L 02/28/19 15:30 Hct 29.2 % (32.4-45.2) L 02/28/19 15:30 MCV 92.6 fl (80-96) 02/28/19 15:30 MCH 30.8 pg (25.7-33.7) 02/28/19 15:30 MCHC 33.2 g/dl (32.0-36.0) 02/28/19 15:30 RDW 15.0 % (11.6-15.6) 02/28/19 15:30 Plt Count 90 K/MM3 (134-434) L 02/28/19 15:30 MPV 8.9 fl (7.5-11.1) D 02/28/19 15:30 Sodium 145 mmol/L (136-145) 02/28/19 15:30 Potassium 3.8 mmol/L (3.5-5.1) 02/28/19 15:30 Chloride 112 mmol/L (98-107) H 02/28/19 15:30 Carbon Dioxide 26 mmol/L (21-32) 02/28/19 15:30 Anion Gap 7 MMOL/L (8-16) L 02/28/19 15:30 BUN 16.7 mg/dL (7-18) 02/28/19 15:30 Creatinine 1.0 mg/dL (0.55-1.3) 02/28/19 15:30 Est GFR (CKD-EPI)AfAm 71.41 02/28/19 15:30 Est GFR (CKD-EPI)NonAf 61.62 02/28/19 15:30 POC Glucometer 100 UNITS (80-120) 03/02/19 05:48 Random Glucose 106 mg/dL (74-106) 02/28/19 15:30 Calcium 8.5 mg/dL (8.5-10.1) 02/28/19 15:30 Total Bilirubin 0.3 mg/dL (0.2-1) 02/28/19 15:30 AST 42 U/L (15-37) H 02/28/19 15:30 ALT 32 U/L (13-61) 02/28/19 15:30 Alkaline Phosphatase 137 U/L (45-117) H 02/28/19 15:30 Total Protein 7.6 g/dl (6.4-8.2) 02/28/19 15:30 Albumin 3.1 g/dl (3.4-5.0) L 02/28/19 15:30 Urine Color Dk yellow 02/28/19 15:57 Urine Appearance Cloudy 02/28/19 15:57 Urine pH 6.0 (5.0-8.0) 02/28/19 15:57 Ur Specific [place] 1.023 (1.010-1.035) 02/28/19 15:57 Urine Protein Trace (NEGATIVE) 02/28/19 15:57 Urine Glucose (UA) Negative (NEGATIVE) 02/28/19 15:57 Urine Ketones Negative (NEGATIVE) 02/28/19 15:57 Urine Blood Negative (NEGATIVE) 02/28/19 15:57 Urine Nitrite Negative (NEGATIVE) 02/28/19 15:57 Urine Bilirubin Negative (NEGATIVE) 02/28/19 15:57 Urine Urobilinogen 1.0 mg/dL (0.2-1.0) 02/28/19 15:57 Ur Leukocyte Esterase Negative (NEGATIVE) 02/28/19 15:57 Urine HCG, Qual Negative 02/28/19 15:57 RPR Titer Nonreactive (NONREACTIVE) 02/28/19 15:30 lab noted patient will bring in lab report to infectious disease specialist for follow up low plate level 03/02/19 10:34 Assessment: 03/02/19 10:35 alcohol and opiate withdrawal sx Plan: continue alcohol and opiate detox
[2019-03-02] MEDS: LISINOPRIL 20 MG TABLET (FP) PO SCH (10:38)
[2019-03-02] MEDS: amLODIPine BESYLATE 10 MG TABLET (FP) PO SCH (10:38)
[2019-03-02] MEDS: PRENATAL VITAMINS W/ FOLIC ACID TABLET (FP) PO SCH (10:38)
[2019-03-02] MEDS: ATENOLOL 50 MG TABLET (FP) PO SCH (10:38)
[2019-03-02] MEDS: MENTHOL/PHENOL 1 EACH UD MM PRN (11:11)
[2019-03-02] MEDS: MAG HYDROX/AL HYDROX/SIMETH 30 ML UNIT-DOSE CUP PO PRN ×2 (12:52→22:50)
[2019-03-02] MEDS: OFLOXACIN 0.3% OTIC SOLUTION 5 ML BOTTLE AU SCH (16:54)
[2019-03-02] MEDS: QUEtiapine FUMARATE 200 MG TABLET PO SCH (22:21)
[2019-03-02] MEDS: THIAMINE HCL 100 MG TABLET (FP) PO SCH (22:21)
[2019-03-02] MEDS: ELVITEG/COB/EMTRI/TENOFO (STRIBILD) TABLET -NF PO SCH (22:22)
[2019-03-02] MEDS: ZONISAMIDE 100 MG CAPSULE PO SCH (22:22)
[2019-03-03] MEDS ORDERED: chlordiazePOXIDE HCL 10 MG CAPSULE PO PRN
[2019-03-03] MEDS ORDERED: chlordiazePOXIDE HCL 10 MG CAPSULE PO SCH (05:00)
[2019-03-03] MEDS: ACETAMINOPHEN 325 MG TABLET (FP) PO PRN (05:55)
[2019-03-03 06:35] VITALS: PULSE 105
[2019-03-03] MEDS: INSULIN SLIDING SCALE (NOVOLOG) 1 VIAL SQ SCH (07:02)
[2019-03-03] MEDS: LIPASE/PROTEASE/AMYLASE 36,000 UNIT CAPSULE PO SCH (07:43)
[2019-03-03] MEDS ORDERED: METHADONE HCL 5 MG TABLET (FOR DETOX USE ONLY) ONE (08:11)
[2019-03-03] MEDS ORDERED: METHADONE HCL 10 MG TABLET (FOR DETOX USE ONLY) ONE (08:11)
[2019-03-03] MEDS: PRENATAL VITAMINS W/ FOLIC ACID TABLET (FP) PO SCH (09:05)
[2019-03-03] MEDS: LISINOPRIL 20 MG TABLET (FP) PO SCH (09:05)
[2019-03-03] MEDS: ATENOLOL 50 MG TABLET (FP) PO SCH (09:05)
[2019-03-03] MEDS: amLODIPine BESYLATE 10 MG TABLET (FP) PO SCH (09:05)
[2019-03-03] MEDS: OFLOXACIN 0.3% OTIC SOLUTION 5 ML BOTTLE AU SCH (09:06)
[2019-03-03 09:11] VITALS: BP 119/84; TEMP 96.9
[2019-03-03] MEDS ORDERED: METHADONE (DETOX) 10 MG, METHADONE (DETOX) 5 MG PO ONE (10:00)
--- NOTE | 2019-03-03 16:48 | PN ---
S CIWA - CIWA Score Nausea/Vomitin-No Nausea/No Vomiting Muscle Tremors: None Anxiety: 1-Mildly Anxious Agitation: 1-Slight > Activity Paroxysmal Sweats: 2 Orientation: 0-Oriented Tacttile Disturbances: 1-Very Mild Itch/Numbness Auditory Disturbances: 0-None Visual Disturbances: 1-Very Mild Sensitivity Headache: 0-None Present CIWA-Ar Total Score: 6 S COWS - Scale Resting Pulse: 1= [place] 81-100 Sweatin= Chills/Flushing Restless Observation: 1= Difficult to Sit Still Pupil Size: 0= Normal to Room Light Bone or Joint Aches: 0= None Runny Nose/ Eye Tearin= None GI Upset > 30mins: 0= None Tremor Observation of Outstretched Hands: 0= None Yawning Observation: 1= 1-2x During Session Anxiety or Irritability: 0= None Goose Flesh Skin: 0=Smooth Skin COWS Score: 4 S Progress Note (SOAP) Subjective: Sweating. Objective: PATIENT A & O X 3, OBSERVED AMBULATING ON UNIT UNASSISTED. IN NO ACUTE DISTRESS. 03/03/19 16:45 Vital Signs Temperature 96.9 F L 03/03/19 09:10 Pulse Rate 105 H 03/03/19 09:10 Respiratory Rate 16 03/03/19 09:10 Blood Pressure 119/84 03/03/19 09:10 O2 Sat by Pulse Oximetry (%) Laboratory Tests 02/28/19 02/28/19 02/28/19 15:30 15:30 15:30 WBC 3.8 L RBC 3.16 L Hgb 9.7 L Hct 29.2 L MCV 92.6 MCH 30.8 MCHC 33.2 RDW 15.0 Plt Count 90 L MPV 8.9 D Sodium 145 Potassium 3.8 Chloride 112 H Carbon Dioxide 26 Anion Gap 7 L BUN 16.7 Creatinine 1.0 Est GFR (CKD-EPI)AfAm 71.41 Est GFR (CKD-EPI)NonAf 61.62 POC Glucometer Random Glucose 106 Calcium 8.5 Total Bilirubin 0.3 AST 42 H ALT 32 Alkaline Phosphatase 137 H Total Protein 7.6 Albumin 3.1 L Urine Color Urine Appearance Urine pH Ur Specific [place] Urine Protein Urine Glucose (UA) Urine Ketones Urine Blood Urine Nitrite Urine Bilirubin Urine Urobilinogen Ur Leukocyte Esterase Urine HCG, Qual RPR Titer Nonreactive TB Test (QFT) Nil TB Test (QFT) Mitogen TB Test (QFT) Antigen TB Test (QFT) TB Positive Criteria 02/28/19 02/28/19 02/28/19 15:45 15:57 16:28 WBC RBC Hgb Hct MCV MCH MCHC RDW Plt Count MPV Sodium Potassium Chloride Carbon Dioxide Anion Gap BUN Creatinine Est GFR (CKD-EPI)AfAm Est GFR (CKD-EPI)NonAf POC Glucometer 117 Random Glucose Calcium Total Bilirubin AST ALT Alkaline Phosphatase Total Protein Albumin Urine Color Dk yellow Urine Appearance Cloudy Urine pH 6.0 Ur Specific [place] 1.023 Urine Protein Trace Urine Glucose (UA) Negative Urine Ketones Negative Urine Blood Negative Urine Nitrite Negative Urine Bilirubin Negative Urine Urobilinogen 1.0 Ur Leukocyte Esterase Negative Urine HCG, Qual Negative RPR Titer TB Test (QFT) Nil 0.04 TB Test (QFT) Mitogen 7.83 TB Test (QFT) Antigen 0.05 TB Test (QFT) Negative TB Positive Criteria 03/01/19 03/01/19 03/01/19 05:57 11:24 16:22 WBC RBC Hgb Hct MCV MCH MCHC RDW Plt Count MPV Sodium Potassium Chloride Carbon Dioxide Anion Gap BUN Creatinine Est GFR (CKD-EPI)AfAm Est GFR (CKD-EPI)NonAf POC Glucometer 118 126 100 Random Glucose Calcium Total Bilirubin AST ALT Alkaline Phosphatase Total Protein Albumin Urine Color Urine Appearance Urine pH Ur Specific [place] Urine Protein Urine Glucose (UA) Urine Ketones Urine Blood Urine Nitrite Urine Bilirubin Urine Urobilinogen Ur Leukocyte Esterase Urine HCG, Qual RPR Titer TB Test (QFT) Nil TB Test (QFT) Mitogen TB Test (QFT) Antigen TB Test (QFT) TB Positive Criteria 03/01/19 03/02/19 03/02/19 21:12 05:48 11:10 WBC RBC Hgb Hct MCV MCH MCHC RDW Plt Count MPV Sodium Potassium Chloride Carbon Dioxide Anion Gap BUN Creatinine Est GFR (CKD-EPI)AfAm Est GFR (CKD-EPI)NonAf POC Glucometer 89 100 91 Random Glucose Calcium Total Bilirubin AST ALT Alkaline Phosphatase Total Protein Albumin Urine Color Urine Appearance Urine pH Ur Specific [place] Urine Protein Urine Glucose (UA) Urine Ketones Urine Blood Urine Nitrite Urine Bilirubin Urine Urobilinogen Ur Leukocyte Esterase Urine HCG, Qual RPR Titer TB Test (QFT) Nil TB Test (QFT) Mitogen TB Test (QFT) Antigen TB Test (QFT) TB Positive Criteria 03/02/19 03/02/19 03/03/19 16:34 21:13 05:54 WBC RBC Hgb Hct MCV MCH MCHC RDW Plt Count MPV Sodium Potassium Chloride Carbon Dioxide Anion Gap BUN Creatinine Est GFR (CKD-EPI)AfAm Est GFR (CKD-EPI)NonAf POC Glucometer 122 121 111 Random Glucose Calcium Total Bilirubin AST ALT Alkaline Phosphatase Total Protein Albumin Urine Color Urine Appearance Urine pH Ur Specific [place] Urine Protein Urine Glucose (UA) Urine Ketones Urine Blood Urine Nitrite Urine Bilirubin Urine Urobilinogen Ur Leukocyte Esterase Urine HCG, Qual RPR Titer TB Test (QFT) Nil TB Test (QFT) Mitogen TB Test (QFT) Antigen TB Test (QFT) TB Positive Criteria LABS NOTED. Assessment: 03/03/19 16:45 COMPLETION OF DETOX REGIMEN. Plan: SINCE PATIENT REPORTS THAT CURRENT WITHDRAWAL / DETOX SYMPTOMS ARE MINIMAL IN DEGREE AND THAT HE FEELS WELL OVERALL, AT PATIENTS REQUEST, HE WAS GRANTED AN EARLY DISCHARGE FROM DETOX UNIT TODAY SO THAT SHE MAY PROCEED ON TO AFTERCARE PLAN - [facility] ([place], [place]).
--- NOTE | 2019-03-03 16:55 | DS ---
[facility] Detox Discharge Summary Admission Date: 02/28/19 Discharge Date: 03/03/19 - History Present History: Alcohol Dependence, Opioid Dependence Additional Comments: PATIENT REPORTS THAT CURRENT WITHDRAWAL / DETOX SYMPTOMS ARE MINIMAL IN DEGREE AND THAT SHE FEELS WELL OVERALL AT TIME OF DISCHARGE FROM DETOX UNIT. PATIENT WILL ATTEND [facility]PATIENT [facility] ([place], [place]) FOR AFTERCARE. PATIENT ADVISED TO FOLLOW-UP WITH HIGH RISK OB AFTER DISCHARGE FROM DETOX FOR GENERAL MEDICAL ASSESSMENT AND FOR LOW WBC AND PLATELET LEVELS AND FOR ANEMIA NOTED ON DETOX ADMISSION LABORATORY ASSESSMENT. PATIENT VERBALIZED UNDERSTANDING OF RECOMMENDATION. COPIES OF RESULTS OF ALL LABS DRAWN WHILE ADMITTED FOR DETOX GIVEN TO PATIENT AT TIME OF DISCHARGE FROM DETOX UNIT. PATIENT DECLINED OFFER OF MEDICATION PRESCRIPTION FOR HOME MEDICATION AT TIME OF DISCHARGE FROM DETOX, NOTING THAT SHE CURRENTLY HAS ADEQUATE SUPPLIES OF ALL PRESCRIBED HOME MEDICATIONS AT HOME. PATIENT WAS DISCHARGED FROM DETOX UNIT IN STABLE MEDICAL CONDITION. Pertinent Past History: C.A.D., History Of M.I., H.I.V., Hep C, Bipolar Disorder, HTN, Asthma, Schizoaffective Disorder, Type II DM, Asthma, Epilepsy / Seizures. - Physical Exam Results Vital Signs: Vital Signs Temperature 96.9 F L 03/03/19 09:10 Pulse Rate 105 H 03/03/19 09:10 Respiratory Rate 16 03/03/19 09:10 Blood Pressure 119/84 03/03/19 09:10 O2 Sat by Pulse Oximetry (%) Pertinent Admission Physical Exam Findings: WITHDRAWAL SYMPTOMS. Laboratory Tests 02/28/19 02/28/19 02/28/19 15:30 15:30 15:30 WBC 3.8 L RBC 3.16 L Hgb 9.7 L Hct 29.2 L MCV 92.6 MCH 30.8 MCHC 33.2 RDW 15.0 Plt Count 90 L MPV 8.9 D Sodium 145 Potassium 3.8 Chloride 112 H Carbon Dioxide 26 Anion Gap 7 L BUN 16.7 Creatinine 1.0 Est GFR (CKD-EPI)AfAm 71.41 Est GFR (CKD-EPI)NonAf 61.62 POC Glucometer Random Glucose 106 Calcium 8.5 Total Bilirubin 0.3 AST 42 H ALT 32 Alkaline Phosphatase 137 H Total Protein 7.6 Albumin 3.1 L Urine Color Urine Appearance Urine pH Ur Specific [place] Urine Protein Urine Glucose (UA) Urine Ketones Urine Blood Urine Nitrite Urine Bilirubin Urine Urobilinogen Ur Leukocyte Esterase Urine HCG, Qual RPR Titer Nonreactive TB Test (QFT) Nil TB Test (QFT) Mitogen TB Test (QFT) Antigen TB Test (QFT) TB Positive Criteria 02/28/19 02/28/19 02/28/19 15:45 15:57 16:28 WBC RBC Hgb Hct MCV MCH MCHC RDW Plt Count MPV Sodium Potassium Chloride Carbon Dioxide Anion Gap BUN Creatinine Est GFR (CKD-EPI)AfAm Est GFR (CKD-EPI)NonAf POC Glucometer 117 Random Glucose Calcium Total Bilirubin AST ALT Alkaline Phosphatase Total Protein Albumin Urine Color Dk yellow Urine Appearance Cloudy Urine pH 6.0 Ur Specific [place] 1.023 Urine Protein Trace Urine Glucose (UA) Negative Urine Ketones Negative Urine Blood Negative Urine Nitrite Negative Urine Bilirubin Negative Urine Urobilinogen 1.0 Ur Leukocyte Esterase Negative Urine HCG, Qual Negative RPR Titer TB Test (QFT) Nil 0.04 TB Test (QFT) Mitogen 7.83 TB Test (QFT) Antigen 0.05 TB Test (QFT) Negative TB Positive Criteria 03/01/19 03/01/19 03/01/19 05:57 11:24 16:22 WBC RBC Hgb Hct MCV MCH MCHC RDW Plt Count MPV Sodium Potassium Chloride Carbon Dioxide Anion Gap BUN Creatinine Est GFR (CKD-EPI)AfAm Est GFR (CKD-EPI)NonAf POC Glucometer 118 126 100 Random Glucose Calcium Total Bilirubin AST ALT Alkaline Phosphatase Total Protein Albumin Urine Color Urine Appearance Urine pH Ur Specific [place] Urine Protein Urine Glucose (UA) Urine Ketones Urine Blood Urine Nitrite Urine Bilirubin Urine Urobilinogen Ur Leukocyte Esterase Urine HCG, Qual RPR Titer TB Test (QFT) Nil TB Test (QFT) Mitogen TB Test (QFT) Antigen TB Test (QFT) TB Positive Criteria 03/01/19 03/02/19 03/02/19 21:12 05:48 11:10 WBC RBC Hgb Hct MCV MCH MCHC RDW Plt Count MPV Sodium Potassium Chloride Carbon Dioxide Anion Gap BUN Creatinine Est GFR (CKD-EPI)AfAm Est GFR (CKD-EPI)NonAf POC Glucometer 89 100 91 Random Glucose Calcium Total Bilirubin AST ALT Alkaline Phosphatase Total Protein Albumin Urine Color Urine Appearance Urine pH Ur Specific [place] Urine Protein Urine Glucose (UA) Urine Ketones Urine Blood Urine Nitrite Urine Bilirubin Urine Urobilinogen Ur Leukocyte Esterase Urine HCG, Qual RPR Titer TB Test (QFT) Nil TB Test (QFT) Mitogen TB Test (QFT) Antigen TB Test (QFT) TB Positive Criteria 03/02/19 03/02/19 03/03/19 16:34 21:13 05:54 WBC RBC Hgb Hct MCV MCH MCHC RDW Plt Count MPV Sodium Potassium Chloride Carbon Dioxide Anion Gap BUN Creatinine Est GFR (CKD-EPI)AfAm Est GFR (CKD-EPI)NonAf POC Glucometer 122 121 111 Random Glucose Calcium Total Bilirubin AST ALT Alkaline Phosphatase Total Protein Albumin Urine Color Urine Appearance Urine pH Ur Specific [place] Urine Protein Urine Glucose (UA) Urine Ketones Urine Blood Urine Nitrite Urine Bilirubin Urine Urobilinogen Ur Leukocyte Esterase Urine HCG, Qual RPR Titer TB Test (QFT) Nil TB Test (QFT) Mitogen TB Test (QFT) Antigen TB Test (QFT) TB Positive Criteria LABS NOTED. - Treatment Hospital Course: Detox Protocol Followed, Detoxed Safely, Responded well, Discharged Condition Good Patient has Accepted a Rehab Referral to: PT. GOING TO [facility] ([place], [place]). - Medication Discharge Medications: Ambulatory Orders Atenolol [Tenormin -] 50 mg PO DAILY 09/07/16 Quetiapine Fumarate [Seroquel -] 300 mg PO HS 09/07/16 Zonisamide [Zonegran -] 300 mg PO HS 09/07/16 cloNIDine HCL [Catapres -] 0.3 mg PO BID 09/07/16 Albuterol Sulfate Inhaler - [Ventolin HFA Inhaler -] 2 puff IH Q4H PRN #1 inhaler 09/10/16 Amlodipine Besylate [Norvasc -] 20 mg PO DAILY 02/28/19 Elviteg/Cob/Emtri/Tenofo Disop [Stribild (Non-Formulary)] 1 tab PO HS 02/28/19 Lipase/Protease/Amylase [Creon Dr 24,000 Units Capsule] 36,000 units PO TID Lisinopril [Prinivil] 20 mg PO DAILY 02/28/19 - Diagnosis (1) Alcohol dependence with uncomplicated withdrawal Status: Acute (2) Opiate withdrawal Status: Acute (3) Asthma Status: Chronic Qualifiers: Asthma severity: unspecified severity Asthma persistence: unspecified Asthma complication type: uncomplicated Qualified Code(s): J45.909 - Unspecified asthma, uncomplicated (4) Diabetes mellitus type II, controlled Status: Chronic Qualifiers: Diabetes mellitus moth exterminator insulin use: with snf use Diabetes mellitus complication status: with neurologic complications Diabetes mellitus complication detail: with polyneuropathy Qualified Code(s): E11.42 - Type 2 diabetes mellitus with diabetic polyneuropathy (5) GERD (gastroesophageal reflux disease) Status: Chronic Qualifiers: Esophagitis presence: without esophagitis Qualified Code(s): K21.9 - Gastro -esophageal reflux disease without esophagitis (6) HIV (human immunodeficiency virus infection) Status: Chronic Qualifiers: HIV symptom status: unspecified Qualified Code(s): B20 - Human immunodeficiency virus [HIV] disease (7) Hepatitis C antibody test positive Status: Chronic (8) Hypertension Status: Chronic Qualifiers: Hypertension type: essential hypertension Qualified Code(s): I10 - Essential (primary) hypertension (9) Nicotine dependence Status: Chronic Qualifiers: Nicotine product type: cigarettes Substance use status: uncomplicated Qualified Code(s): F17.210 - Nicotine dependence, cigarettes, uncomplicated (10) Schizoaffective disorder Status: Chronic Qualifiers: Schizoaffective disorder type: unspecified Qualified Code(s): F25.9 - Schizoaffective disorder, unspecified (11) Schizophrenia Status: Suspected Qualifiers: Schizophrenia type: disorganized schizophrenia Qualified Code(s): F20.1 - Disorganized schizophrenia - AMA Did Patient Leave Against Medical Advice: No
[2019-03-04] MEDS ORDERED: chlordiazePOXIDE HCL 10 MG CAPSULE PO ONE (05:00)
[2019-03-04] MEDS ORDERED: METHADONE HCL 10 MG TABLET (FOR DETOX USE ONLY) PO ONE (10:00)
[2019-03-05] MEDS ORDERED: METHADONE HCL 5 MG TABLET (FOR DETOX USE ONLY) PO ONE (06:00)
== END 2019-03-03 09:38 | disposition home or self-care (01) | DRG 773 ==
LOC: YASAS 11:28 → Y3N 15:33
PROVIDERS: ADMIT Surgery; ATTEND Surgery
PROC: HZ2ZZZZ Detoxification Services for Substance Abuse Treatment (ICD-10-PCS; principal; 2019-02-28)
DX: F10.230 Alcohol dependence with withdrawal, uncomplicated (principal); F11.23 Opioid dependence with withdrawal; F14.20 Cocaine dependence, uncomplicated; F17.210 Nicotine dependence, cigarettes, uncomplicated; F20.1 Disorganized schizophrenia; F25.9 Schizoaffective disorder, unspecified; F31.9 Bipolar disorder, unspecified; Z21 Asymptomatic human immunodeficiency virus [HIV] infection status; I25.10 Atherosclerotic heart disease of native coronary artery without angina pectoris; I10 Essential (primary) hypertension; I25.2 Old myocardial infarction; N39.0 Urinary tract infection, site not specified; G40.909 Epilepsy, unspecified, not intractable, without status epilepticus; H66.93 Otitis media, unspecified, bilateral; Z91.5 Personal history of self-harm; Z98.42 Cataract extraction status, left eye
CPT/HCPCS: 36415; 80053; 81003; 82962; 84703; 85027; 86480; 86593; J0735

== ENCOUNTER 2021-06-24 18:01 | Inpatient (IN) | payer OTHER ==
[2021-06-24 19:04] VITALS: BMI 21.5
[2021-06-24] MEDS ORDERED: P-EPHED 60MG/TRIPROLIDI 2.5MG TABLET PO PRN (19:44)
[2021-06-24] MEDS ORDERED: MAGNESIUM HYDROX 2400MG/30ML ORAL SUSPENSION 30 ML CUP PO PRN (19:44)
[2021-06-24] MEDS ORDERED: guaiFENesin 200 MG/10 ML 10 ML UNIT-DOSE CUPS PO PRN (19:44)
[2021-06-24] MEDS ORDERED: MAG HYDROX/AL HYDROX/SIMETH 30 ML UNIT-DOSE CUP PO PRN (19:44)
[2021-06-24] MEDS ORDERED: NICOTINE POLACRILEX 2 MG GUM BC PRN (19:44)
[2021-06-24] MEDS ORDERED: MAGNESIUM CITRATE 300 ML BOTTLE PO PRN (19:44)
[2021-06-24] MEDS ORDERED: LOPERAMIDE HCL 2 MG CAPSULE PO PRN (19:44)
[2021-06-24] MEDS: amLODIPine BESYLATE 5 MG TABLET (FP) PO SCH (21:13)
[2021-06-24] MEDS: ATENOLOL 50 MG TABLET (FP) PO SCH (21:13)
[2021-06-24] MEDS: LISINOPRIL 10 MG TABLET PO SCH (21:14)
[2021-06-24] MEDS ORDERED: TUBERCULIN PPD 5 TU/0.1ML VIAL ID ONE (21:16)
[2021-06-24] MEDS: ZONISAMIDE 100 MG CAPSULE PO SCH (22:25)
[2021-06-24] MEDS: THIAMINE HCL 100 MG TABLET (FP) PO SCH (22:43)
[2021-06-24] MEDS: MELATONIN 5 MG TABLETS PO SCH (22:43)
[2021-06-25] MEDS ORDERED: INSULIN SLIDING SCALE (NOVOLOG) 1 VIAL SQ SCH (07:15)
[2021-06-25] MEDS: ZONISAMIDE 100 MG CAPSULE PO SCH ×2 (07:34→21:06)
[2021-06-25] MEDS ORDERED: methaDONE HCL 10 MG TABLET PO ONE (08:14)
[2021-06-25] MEDS ORDERED: methaDONE HCL 10 MG TABLET ONE (09:29)
[2021-06-25] MEDS ORDERED: methaDONE HCL 40 MG DISPERSABLE TABLET ONE (09:29)
[2021-06-25] MEDS ORDERED: methaDONE 40 MG, methaDONE 30 MG PO ONE (09:30)
[2021-06-25] MEDS: ATENOLOL 50 MG TABLET (FP) PO SCH (09:32)
[2021-06-25] MEDS: PRENATAL VITAMINS W/ FOLIC ACID TABLET (FP) PO SCH (09:32)
[2021-06-25] MEDS: INSULIN SLIDING SCALE (NOVOLOG) 1 VIAL SQ SCH ×2 (09:40→16:43)
[2021-06-25] MEDS: amLODIPine BESYLATE 5 MG TABLET (FP) PO SCH (09:42)
[2021-06-25] MEDS: LISINOPRIL 10 MG TABLET PO SCH (09:43)
[2021-06-25 14:46] LABS: HEMATOCRIT 34.2 % (32.4-45.2); HEMOGLOBIN 11.2 GM/dL (10.7-15.3); MCH 29.6 pg (25.7-33.7); MCHC 32.9 g/dl (32.0-36.0); MEAN CELL VOLUME 89.8 fl (80-96); PLATELET COUNT 117 10^3/uL (134-434); RDW 15.8 % (11.6-15.6); WHITE BLOOD COUNT 5.5 K/mm3 (4.0-10.0)
[2021-06-25 14:55] LABS: CALCIUM 8.4 mg/dL (8.5-10.1)
[2021-06-25 14:56] LABS: ALBUMIN 1.9 g/dl (3.4-5.0); BLOOD UREA NITROGEN 13.7 mg/dL (7-18)
[2021-06-25 15:00] LABS: BILIRUBIN,TOTAL 0.4 mg/dL (0.2-1); TOT PROT 7.9 g/dl (6.4-8.2)
[2021-06-25] MEDS: COLLOIDAL OATMEAL 1 BAR EACH TP PRN (21:05)
[2021-06-25] MEDS: THIAMINE HCL 100 MG TABLET (FP) PO SCH (21:06)
[2021-06-25] MEDS: MELATONIN 5 MG TABLETS PO SCH (21:06)
[2021-06-25] MEDS: OLANZapine 7.5 MG TABLET PO SCH (21:06)
[2021-06-25] MEDS: cloNIDine HCL 0.1 MG TABLET PO PRN (21:07)
[2021-06-26] MEDS ORDERED: methaDONE HCL 10 MG TABLET ONE (04:54)
[2021-06-26] MEDS ORDERED: methaDONE HCL 40 MG DISPERSABLE TABLET ONE (04:54)
[2021-06-26] MEDS ORDERED: methaDONE HCL 10 MG TABLET PO SCH (06:00)
[2021-06-26] MEDS: methaDONE 40 MG, methaDONE 30 MG PO SCH (07:18)
[2021-06-26] MEDS: INSULIN SLIDING SCALE (NOVOLOG) 1 VIAL SQ SCH ×2 (07:20→16:41)
[2021-06-26] MEDS: PRENATAL VITAMINS W/ FOLIC ACID TABLET (FP) PO SCH (10:28)
[2021-06-26] MEDS: amLODIPine BESYLATE 5 MG TABLET (FP) PO SCH (10:29)
[2021-06-26] MEDS: LISINOPRIL 10 MG TABLET PO SCH (10:29)
[2021-06-26] MEDS: ATENOLOL 50 MG TABLET (FP) PO SCH (10:29)
[2021-06-26] MEDS: ZONISAMIDE 100 MG CAPSULE PO SCH ×2 (10:30→21:15)
[2021-06-26] MEDS: THIAMINE HCL 100 MG TABLET (FP) PO SCH (21:15)
[2021-06-26] MEDS: cloNIDine HCL 0.1 MG TABLET PO PRN (21:15)
[2021-06-26] MEDS: OLANZapine 7.5 MG TABLET PO SCH (21:15)
[2021-06-26] MEDS: MELATONIN 5 MG TABLETS PO SCH (21:16)
[2021-06-27] MEDS ORDERED: methaDONE HCL 40 MG DISPERSABLE TABLET ONE (03:59)
[2021-06-27] MEDS ORDERED: methaDONE HCL 10 MG TABLET ONE (03:59)
[2021-06-27] MEDS ORDERED: PT OWN MED DRAWER 7, Y5N ONE (04:00)
[2021-06-27] MEDS: methaDONE 40 MG, methaDONE 30 MG PO SCH (06:34)
[2021-06-27] MEDS: INSULIN SLIDING SCALE (NOVOLOG) 1 VIAL SQ SCH ×2 (06:36→16:42)
[2021-06-27] MEDS: ZONISAMIDE 100 MG CAPSULE PO SCH ×2 (06:47→22:01)
[2021-06-27] MEDS: amLODIPine BESYLATE 5 MG TABLET (FP) PO SCH (10:09)
[2021-06-27] MEDS: PRENATAL VITAMINS W/ FOLIC ACID TABLET (FP) PO SCH (10:09)
[2021-06-27] MEDS: LISINOPRIL 10 MG TABLET PO SCH (10:09)
[2021-06-27] MEDS: ATENOLOL 50 MG TABLET (FP) PO SCH (10:09)
[2021-06-27 10:28] LABS: EPI CELLS 3 /uL (0-25.1); HYALINE CASTS 0 /uL (0-3.1); URINE APPEARANCE CLEAR; URINE BACTERIA 74 /uL (0-1359); URINE BILIRUBIN NEGATIVE (NEGATIVE); URINE COLOR YELLOW; URINE GLUCOSE (UA) NEGATIVE (NEGATIVE); URINE KETONE NEGATIVE (NEGATIVE); URINE LEUK ESTERASE NEGATIVE (NEGATIVE); URINE NITRITE NEGATIVE (NEGATIVE); URINE PROTEIN 2+ (NEGATIVE); URINE RBC 5 /uL (0-23.9); URINE WBC 5 /uL (0-25.8)
[2021-06-27] MEDS: THIAMINE HCL 100 MG TABLET (FP) PO SCH (22:00)
[2021-06-27] MEDS: MELATONIN 5 MG TABLETS PO SCH (22:00)
[2021-06-27] MEDS: OLANZapine 7.5 MG TABLET PO SCH (22:01)
[2021-06-27] MEDS: cloNIDine HCL 0.1 MG TABLET PO PRN (22:02)
[2021-06-28] MEDS ORDERED: methaDONE HCL 40 MG DISPERSABLE TABLET ONE (03:17)
[2021-06-28] MEDS ORDERED: methaDONE HCL 10 MG TABLET ONE (03:17)
[2021-06-28] MEDS: INSULIN SLIDING SCALE (NOVOLOG) 1 VIAL SQ SCH ×2 (06:29→17:59)
[2021-06-28] MEDS: methaDONE 40 MG, methaDONE 30 MG PO SCH (06:30)
[2021-06-28] MEDS: ZONISAMIDE 100 MG CAPSULE PO SCH ×2 (06:54→21:42)
[2021-06-28] MEDS: amLODIPine BESYLATE 5 MG TABLET (FP) PO SCH (10:28)
[2021-06-28] MEDS: ATENOLOL 50 MG TABLET (FP) PO SCH (10:28)
[2021-06-28] MEDS: LISINOPRIL 10 MG TABLET PO SCH (10:28)
[2021-06-28] MEDS: PRENATAL VITAMINS W/ FOLIC ACID TABLET (FP) PO SCH (10:28)
[2021-06-28 12:33] LABS: CALCIUM 7.9 mg/dL (8.5-10.1)
[2021-06-28 12:34] LABS: BLOOD UREA NITROGEN 20.3 mg/dL (7-18)
[2021-06-28] MEDS: MELATONIN 5 MG TABLETS PO SCH (21:42)
[2021-06-28] MEDS: THIAMINE HCL 100 MG TABLET (FP) PO SCH (21:42)
[2021-06-28] MEDS: OLANZapine 7.5 MG TABLET PO SCH (21:42)
[2021-06-28] MEDS: NICOTINE 10 MG CARTRIDGE (INHALER) IH PRN (21:43)
[2021-06-29] MEDS ORDERED: methaDONE HCL 10 MG TABLET ONE (03:27)
[2021-06-29] MEDS ORDERED: methaDONE HCL 40 MG DISPERSABLE TABLET ONE (03:28)
[2021-06-29] MEDS: cloNIDine HCL 0.1 MG TABLET PO PRN (06:16)
[2021-06-29] MEDS: methaDONE 40 MG, methaDONE 30 MG PO SCH (06:16)
[2021-06-29] MEDS: INSULIN SLIDING SCALE (NOVOLOG) 1 VIAL SQ SCH ×2 (06:17→16:57)
[2021-06-29] MEDS: ZONISAMIDE 100 MG CAPSULE PO SCH ×2 (06:53→21:43)
[2021-06-29] MEDS: PRENATAL VITAMINS W/ FOLIC ACID TABLET (FP) PO SCH (10:27)
[2021-06-29] MEDS: amLODIPine BESYLATE 5 MG TABLET (FP) PO SCH (10:27)
[2021-06-29] MEDS: ATENOLOL 50 MG TABLET (FP) PO SCH (10:27)
[2021-06-29] MEDS: LISINOPRIL 10 MG TABLET PO SCH (10:27)
[2021-06-29] MEDS: NICOTINE 10 MG CARTRIDGE (INHALER) IH PRN (15:33)
[2021-06-29] MEDS: THIAMINE HCL 100 MG TABLET (FP) PO SCH (21:44)
[2021-06-29] MEDS: MELATONIN 5 MG TABLETS PO SCH (21:44)
[2021-06-29] MEDS: OLANZapine 7.5 MG TABLET PO SCH (21:44)
[2021-06-30] MEDS ORDERED: methaDONE HCL 10 MG TABLET ONE (03:02)
[2021-06-30] MEDS ORDERED: methaDONE HCL 40 MG DISPERSABLE TABLET ONE (03:03)
[2021-06-30] MEDS ORDERED: PT OWN MED DRAWER 7, Y5N ONE (03:04)
[2021-06-30] MEDS: cloNIDine HCL 0.1 MG TABLET PO PRN ×3 (06:08→23:41)
[2021-06-30] MEDS: methaDONE 40 MG, methaDONE 30 MG PO SCH (06:09)
[2021-06-30] MEDS: INSULIN SLIDING SCALE (NOVOLOG) 1 VIAL SQ SCH ×2 (06:10→17:01)
[2021-06-30] MEDS: ZONISAMIDE 100 MG CAPSULE PO SCH ×2 (06:46→20:34)
[2021-06-30] MEDS: NICOTINE 10 MG CARTRIDGE (INHALER) IH PRN ×2 (08:35→14:35)
[2021-06-30] MEDS ORDERED: ALBUTEROL SO4 HFA INHALER IH PRN (10:25)
[2021-06-30] MEDS: LISINOPRIL 10 MG TABLET PO SCH (10:34)
[2021-06-30] MEDS: ATENOLOL 50 MG TABLET (FP) PO SCH (10:34)
[2021-06-30] MEDS: PRENATAL VITAMINS W/ FOLIC ACID TABLET (FP) PO SCH (10:34)
[2021-06-30] MEDS: amLODIPine BESYLATE 5 MG TABLET (FP) PO SCH (12:17)
[2021-06-30] MEDS: THIAMINE HCL 100 MG TABLET (FP) PO SCH (21:22)
[2021-06-30] MEDS: OLANZapine 7.5 MG TABLET PO SCH (21:33)
[2021-06-30] MEDS: MELATONIN 5 MG TABLETS PO SCH (21:34)
[2021-07-01] MEDS ORDERED: methaDONE HCL 10 MG TABLET ONE (04:03)
[2021-07-01] MEDS ORDERED: methaDONE HCL 40 MG DISPERSABLE TABLET ONE (04:03)
[2021-07-01] MEDS: methaDONE 40 MG, methaDONE 30 MG PO SCH (06:09)
[2021-07-01] MEDS: cloNIDine HCL 0.1 MG TABLET PO PRN (06:11)
[2021-07-01] MEDS: INSULIN SLIDING SCALE (NOVOLOG) 1 VIAL SQ SCH ×2 (06:12→16:41)
[2021-07-01] MEDS: NICOTINE 10 MG CARTRIDGE (INHALER) IH PRN (06:15)
[2021-07-01] MEDS: ZONISAMIDE 100 MG CAPSULE PO SCH ×2 (07:33→19:04)
[2021-07-01] MEDS: ATENOLOL 50 MG TABLET (FP) PO SCH (10:37)
[2021-07-01] MEDS: amLODIPine BESYLATE 5 MG TABLET (FP) PO SCH (10:37)
[2021-07-01] MEDS: PRENATAL VITAMINS W/ FOLIC ACID TABLET (FP) PO SCH (10:37)
[2021-07-01] MEDS: LISINOPRIL 10 MG TABLET PO SCH (10:37)
[2021-07-01] MEDS: ACETAMINOPHEN 325 MG TABLET (FP) PO PRN (15:49)
[2021-07-01] MEDS ORDERED: BENZOCAINE/MENTH/CETYLPYRD CL 1 EACH LOZENGE MM PRN (19:22)
[2021-07-01] MEDS: OLANZapine 7.5 MG TABLET PO SCH (21:04)
[2021-07-01] MEDS: THIAMINE HCL 100 MG TABLET (FP) PO SCH (21:04)
[2021-07-01] MEDS: MELATONIN 5 MG TABLETS PO SCH (21:06)
[2021-07-02] MEDS: cloNIDine HCL 0.1 MG TABLET PO PRN ×3 (00:05→20:21)
[2021-07-02] MEDS ORDERED: methaDONE HCL 40 MG DISPERSABLE TABLET ONE (03:31)
[2021-07-02] MEDS ORDERED: methaDONE HCL 10 MG TABLET ONE (03:31)
[2021-07-02] MEDS: methaDONE 40 MG, methaDONE 30 MG PO SCH (06:46)
[2021-07-02] MEDS: ZONISAMIDE 100 MG CAPSULE PO SCH ×2 (06:48→20:55)
[2021-07-02] MEDS: INSULIN SLIDING SCALE (NOVOLOG) 1 VIAL SQ SCH ×2 (06:48→17:55)
[2021-07-02] MEDS: PRENATAL VITAMINS W/ FOLIC ACID TABLET (FP) PO SCH (09:07)
[2021-07-02] MEDS: COLLOIDAL OATMEAL 1 BAR EACH TP PRN (09:07)
[2021-07-02] MEDS: ATENOLOL 50 MG TABLET (FP) PO SCH (09:08)
[2021-07-02] MEDS: amLODIPine BESYLATE 5 MG TABLET (FP) PO SCH (09:08)
[2021-07-02] MEDS: LISINOPRIL 10 MG TABLET PO SCH (09:08)
[2021-07-02] MEDS: NICOTINE 10 MG CARTRIDGE (INHALER) IH PRN ×2 (14:52→21:50)
[2021-07-02] MEDS: NICOTINE 14 MG/24 HOURS TOPICAL PATCH TD SCH (15:41)
[2021-07-02] MEDS: MELATONIN 5 MG TABLETS PO SCH (21:47)
[2021-07-02] MEDS: THIAMINE HCL 100 MG TABLET (FP) PO SCH (21:47)
[2021-07-02] MEDS: OLANZapine 7.5 MG TABLET PO SCH (21:47)
[2021-07-03] MEDS ORDERED: methaDONE HCL 10 MG TABLET ONE (06:18)
[2021-07-03] MEDS ORDERED: methaDONE HCL 40 MG DISPERSABLE TABLET ONE (06:18)
[2021-07-03] MEDS: methaDONE 40 MG, methaDONE 30 MG PO SCH (06:18)
[2021-07-03] MEDS: cloNIDine HCL 0.1 MG TABLET PO PRN ×2 (06:18→21:49)
[2021-07-03] MEDS: INSULIN SLIDING SCALE (NOVOLOG) 1 VIAL SQ SCH ×2 (06:19→16:59)
[2021-07-03] MEDS: ZONISAMIDE 100 MG CAPSULE PO SCH ×2 (06:59→21:50)
[2021-07-03] MEDS: PRENATAL VITAMINS W/ FOLIC ACID TABLET (FP) PO SCH (10:46)
[2021-07-03] MEDS: ATENOLOL 50 MG TABLET (FP) PO SCH (10:47)
[2021-07-03] MEDS: LISINOPRIL 10 MG TABLET PO SCH (10:47)
[2021-07-03] MEDS: NICOTINE 14 MG/24 HOURS TOPICAL PATCH TD SCH (10:47)
[2021-07-03] MEDS: amLODIPine BESYLATE 5 MG TABLET (FP) PO SCH (10:47)
[2021-07-03] MEDS: NICOTINE 10 MG CARTRIDGE (INHALER) IH PRN (10:48)
[2021-07-03] MEDS: THIAMINE HCL 100 MG TABLET (FP) PO SCH (21:49)
[2021-07-03] MEDS: OLANZapine 7.5 MG TABLET PO SCH (21:49)
[2021-07-03] MEDS: MELATONIN 5 MG TABLETS PO SCH (21:50)
[2021-07-04] MEDS ORDERED: methaDONE HCL 40 MG DISPERSABLE TABLET ONE (05:30)
[2021-07-04] MEDS ORDERED: methaDONE HCL 10 MG TABLET ONE (05:30)
[2021-07-04] MEDS: cloNIDine HCL 0.1 MG TABLET PO PRN ×2 (06:23→20:54)
[2021-07-04] MEDS: methaDONE 40 MG, methaDONE 30 MG PO SCH (06:23)
[2021-07-04] MEDS: INSULIN SLIDING SCALE (NOVOLOG) 1 VIAL SQ SCH ×2 (06:24→17:02)
[2021-07-04] MEDS: NICOTINE 10 MG CARTRIDGE (INHALER) IH PRN ×2 (06:35→17:28)
[2021-07-04] MEDS: ZONISAMIDE 100 MG CAPSULE PO SCH ×2 (06:50→20:54)
[2021-07-04] MEDS: ATENOLOL 50 MG TABLET (FP) PO SCH (10:15)
[2021-07-04] MEDS: LISINOPRIL 10 MG TABLET PO SCH (10:15)
[2021-07-04] MEDS: amLODIPine BESYLATE 5 MG TABLET (FP) PO SCH (10:15)
[2021-07-04] MEDS: PRENATAL VITAMINS W/ FOLIC ACID TABLET (FP) PO SCH (10:15)
[2021-07-04] MEDS: NICOTINE 14 MG/24 HOURS TOPICAL PATCH TD SCH (10:15)
[2021-07-04] MEDS: SUVOREXANT 10 MG TABLET PO PRN (20:58)
[2021-07-04] MEDS: OLANZapine 7.5 MG TABLET PO SCH (21:31)
[2021-07-04] MEDS: MELATONIN 5 MG TABLETS PO SCH (21:32)
[2021-07-04] MEDS: THIAMINE HCL 100 MG TABLET (FP) PO SCH (21:32)
[2021-07-05] MEDS ORDERED: methaDONE HCL 10 MG TABLET ONE (04:08)
[2021-07-05] MEDS ORDERED: methaDONE HCL 40 MG DISPERSABLE TABLET ONE (04:09)
[2021-07-05] MEDS: cloNIDine HCL 0.1 MG TABLET PO PRN ×2 (06:31→20:20)
[2021-07-05] MEDS: methaDONE 40 MG, methaDONE 30 MG PO SCH (06:31)
[2021-07-05] MEDS: INSULIN SLIDING SCALE (NOVOLOG) 1 VIAL SQ SCH ×2 (06:36→16:26)
[2021-07-05] MEDS: NICOTINE 10 MG CARTRIDGE (INHALER) IH PRN ×2 (06:42→18:40)
[2021-07-05] MEDS: ZONISAMIDE 100 MG CAPSULE PO SCH ×2 (06:53→20:24)
[2021-07-05] MEDS: LISINOPRIL 10 MG TABLET PO SCH (10:26)
[2021-07-05] MEDS: PRENATAL VITAMINS W/ FOLIC ACID TABLET (FP) PO SCH (10:26)
[2021-07-05] MEDS: NICOTINE 14 MG/24 HOURS TOPICAL PATCH TD SCH (10:26)
[2021-07-05] MEDS: amLODIPine BESYLATE 5 MG TABLET (FP) PO SCH (10:26)
[2021-07-05] MEDS: ATENOLOL 50 MG TABLET (FP) PO SCH (10:26)
[2021-07-05] MEDS: SUVOREXANT 10 MG TABLET PO PRN (20:24)
[2021-07-05] MEDS: THIAMINE HCL 100 MG TABLET (FP) PO SCH (21:53)
[2021-07-05] MEDS: MELATONIN 5 MG TABLETS PO SCH (21:53)
[2021-07-05] MEDS: OLANZapine 7.5 MG TABLET PO SCH (21:54)
[2021-07-06] MEDS ORDERED: methaDONE HCL 10 MG TABLET ONE (03:53)
[2021-07-06] MEDS ORDERED: methaDONE HCL 40 MG DISPERSABLE TABLET ONE (03:53)
[2021-07-06] MEDS: cloNIDine HCL 0.1 MG TABLET PO PRN ×2 (06:12→20:29)
[2021-07-06] MEDS: methaDONE 40 MG, methaDONE 30 MG PO SCH (06:12)
[2021-07-06] MEDS: INSULIN SLIDING SCALE (NOVOLOG) 1 VIAL SQ SCH ×2 (06:16→16:41)
[2021-07-06] MEDS: ZONISAMIDE 100 MG CAPSULE PO SCH ×2 (06:48→21:38)
[2021-07-06] MEDS: ATENOLOL 50 MG TABLET (FP) PO SCH (10:09)
[2021-07-06] MEDS: amLODIPine BESYLATE 5 MG TABLET (FP) PO SCH (10:09)
[2021-07-06] MEDS: PRENATAL VITAMINS W/ FOLIC ACID TABLET (FP) PO SCH (10:09)
[2021-07-06] MEDS: LISINOPRIL 10 MG TABLET PO SCH (10:09)
[2021-07-06] MEDS: NICOTINE 14 MG/24 HOURS TOPICAL PATCH TD SCH (10:10)
[2021-07-06] MEDS: NICOTINE 10 MG CARTRIDGE (INHALER) IH PRN ×2 (10:12→15:11)
[2021-07-06] MEDS: SUVOREXANT 10 MG TABLET PO PRN (20:31)
[2021-07-06] MEDS: MELATONIN 5 MG TABLETS PO SCH (21:38)
[2021-07-06] MEDS: THIAMINE HCL 100 MG TABLET (FP) PO SCH (21:38)
[2021-07-06] MEDS: OLANZapine 7.5 MG TABLET PO SCH (21:38)
[2021-07-07] MEDS ORDERED: methaDONE HCL 10 MG TABLET ONE (03:13)
[2021-07-07] MEDS ORDERED: methaDONE HCL 40 MG DISPERSABLE TABLET ONE (03:13)
[2021-07-07] MEDS: INSULIN SLIDING SCALE (NOVOLOG) 1 VIAL SQ SCH ×2 (06:19→16:54)
[2021-07-07] MEDS: methaDONE 40 MG, methaDONE 30 MG PO SCH (06:20)
[2021-07-07] MEDS: cloNIDine HCL 0.1 MG TABLET PO PRN ×2 (06:20→21:09)
[2021-07-07] MEDS: ZONISAMIDE 100 MG CAPSULE PO SCH ×2 (07:50→21:10)
[2021-07-07] MEDS: NICOTINE 10 MG CARTRIDGE (INHALER) IH PRN ×2 (08:47→22:30)
[2021-07-07] MEDS: LISINOPRIL 10 MG TABLET PO SCH (09:53)
[2021-07-07] MEDS: NICOTINE 14 MG/24 HOURS TOPICAL PATCH TD SCH (09:53)
[2021-07-07] MEDS: ATENOLOL 50 MG TABLET (FP) PO SCH (09:53)
[2021-07-07] MEDS: amLODIPine BESYLATE 5 MG TABLET (FP) PO SCH (09:53)
[2021-07-07] MEDS: PRENATAL VITAMINS W/ FOLIC ACID TABLET (FP) PO SCH (10:53)
[2021-07-07] MEDS: OLANZapine 7.5 MG TABLET PO SCH (21:09)
[2021-07-07] MEDS: MELATONIN 5 MG TABLETS PO SCH (21:09)
[2021-07-07] MEDS: THIAMINE HCL 100 MG TABLET (FP) PO SCH (21:09)
[2021-07-07] MEDS: SUVOREXANT 10 MG TABLET PO PRN (21:11)
[2021-07-08] MEDS ORDERED: methaDONE HCL 40 MG DISPERSABLE TABLET ONE (03:29)
[2021-07-08] MEDS ORDERED: methaDONE HCL 10 MG TABLET ONE (03:29)
[2021-07-08] MEDS: cloNIDine HCL 0.1 MG TABLET PO PRN (06:08)
[2021-07-08] MEDS: methaDONE 40 MG, methaDONE 30 MG PO SCH (06:09)
[2021-07-08] MEDS: INSULIN SLIDING SCALE (NOVOLOG) 1 VIAL SQ SCH ×2 (06:11→16:55)
[2021-07-08] MEDS: ZONISAMIDE 100 MG CAPSULE PO SCH ×2 (07:36→20:44)
[2021-07-08] MEDS: ATENOLOL 50 MG TABLET (FP) PO SCH (10:37)
[2021-07-08] MEDS: NICOTINE 14 MG/24 HOURS TOPICAL PATCH TD SCH (10:37)
[2021-07-08] MEDS: NICOTINE 10 MG CARTRIDGE (INHALER) IH PRN (10:37)
[2021-07-08] MEDS: LISINOPRIL 10 MG TABLET PO SCH (10:37)
[2021-07-08] MEDS: amLODIPine BESYLATE 5 MG TABLET (FP) PO SCH (10:37)
[2021-07-08] MEDS: PRENATAL VITAMINS W/ FOLIC ACID TABLET (FP) PO SCH (10:37)
[2021-07-08] MEDS: ACETAMINOPHEN 325 MG TABLET (FP) PO PRN ×2 (11:29→20:42)
[2021-07-08] MEDS: LIDOCAINE 5% TOPICAL PATCH TP SCH (14:25)
[2021-07-08] MEDS: SUVOREXANT 10 MG TABLET PO PRN (20:40)
[2021-07-08] MEDS: OLANZapine 7.5 MG TABLET PO SCH (21:46)
[2021-07-08] MEDS: LIDOCAINE PATCH REMOVAL MC SCH (21:46)
[2021-07-08] MEDS: MELATONIN 5 MG TABLETS PO SCH (21:46)
[2021-07-08] MEDS: THIAMINE HCL 100 MG TABLET (FP) PO SCH (21:47)
[2021-07-09] MEDS ORDERED: methaDONE HCL 10 MG TABLET ONE (03:26)
[2021-07-09] MEDS ORDERED: methaDONE HCL 40 MG DISPERSABLE TABLET ONE (03:26)
[2021-07-09] MEDS: methaDONE 40 MG, methaDONE 30 MG PO SCH (06:08)
[2021-07-09] MEDS: cloNIDine HCL 0.1 MG TABLET PO PRN ×2 (06:08→20:47)
[2021-07-09] MEDS: INSULIN SLIDING SCALE (NOVOLOG) 1 VIAL SQ SCH ×2 (06:10→17:33)
[2021-07-09] MEDS: ZONISAMIDE 100 MG CAPSULE PO SCH ×2 (06:53→20:47)
[2021-07-09] MEDS: ATENOLOL 50 MG TABLET (FP) PO SCH (10:38)
[2021-07-09] MEDS: amLODIPine BESYLATE 5 MG TABLET (FP) PO SCH (10:38)
[2021-07-09] MEDS: PRENATAL VITAMINS W/ FOLIC ACID TABLET (FP) PO SCH (10:38)
[2021-07-09] MEDS: LISINOPRIL 10 MG TABLET PO SCH (10:38)
[2021-07-09] MEDS: LIDOCAINE 5% TOPICAL PATCH TP SCH (10:38)
[2021-07-09] MEDS: NICOTINE 14 MG/24 HOURS TOPICAL PATCH TD SCH (10:39)
[2021-07-09] MEDS: NICOTINE 10 MG CARTRIDGE (INHALER) IH PRN ×2 (13:38→22:00)
[2021-07-09] MEDS: SUVOREXANT 10 MG TABLET PO PRN (21:58)
[2021-07-09] MEDS: OLANZapine 7.5 MG TABLET PO SCH (21:59)
[2021-07-09] MEDS: THIAMINE HCL 100 MG TABLET (FP) PO SCH (21:59)
[2021-07-09] MEDS: MELATONIN 5 MG TABLETS PO SCH (21:59)
[2021-07-09] MEDS: LIDOCAINE PATCH REMOVAL MC SCH (22:00)
[2021-07-10] MEDS ORDERED: methaDONE HCL 10 MG TABLET ONE (06:06)
[2021-07-10] MEDS ORDERED: methaDONE HCL 40 MG DISPERSABLE TABLET ONE (06:06)
[2021-07-10] MEDS: methaDONE 40 MG, methaDONE 30 MG PO SCH (06:08)
[2021-07-10] MEDS: cloNIDine HCL 0.1 MG TABLET PO PRN ×2 (06:10→20:50)
[2021-07-10] MEDS: INSULIN SLIDING SCALE (NOVOLOG) 1 VIAL SQ SCH ×2 (06:11→16:40)
[2021-07-10] MEDS: ZONISAMIDE 100 MG CAPSULE PO SCH ×2 (07:10→20:53)
[2021-07-10] MEDS: NICOTINE 10 MG CARTRIDGE (INHALER) IH PRN ×2 (07:10→21:35)
[2021-07-10] MEDS: COLLOIDAL OATMEAL 1 BAR EACH TP PRN (07:33)
[2021-07-10] MEDS: amLODIPine BESYLATE 5 MG TABLET (FP) PO SCH (09:34)
[2021-07-10] MEDS: PRENATAL VITAMINS W/ FOLIC ACID TABLET (FP) PO SCH (09:34)
[2021-07-10] MEDS: ATENOLOL 50 MG TABLET (FP) PO SCH (09:35)
[2021-07-10] MEDS: LISINOPRIL 10 MG TABLET PO SCH (09:35)
[2021-07-10] MEDS: ACETAMINOPHEN 325 MG TABLET (FP) PO PRN (09:35)
[2021-07-10] MEDS: LIDOCAINE 5% TOPICAL PATCH TP SCH (09:36)
[2021-07-10] MEDS: NICOTINE 14 MG/24 HOURS TOPICAL PATCH TD SCH (09:36)
[2021-07-10] MEDS: SUVOREXANT 5 MG TABLET PO PRN (21:21)
[2021-07-10] MEDS: OLANZapine 7.5 MG TABLET PO SCH (21:26)
[2021-07-10] MEDS: LIDOCAINE PATCH REMOVAL MC SCH (21:27)
[2021-07-10] MEDS: THIAMINE HCL 100 MG TABLET (FP) PO SCH (21:27)
[2021-07-10] MEDS ORDERED: SUVOREXANT 10 MG TABLET PO PRN (22:00)
[2021-07-11] MEDS ORDERED: methaDONE HCL 10 MG TABLET ONE (03:38)
[2021-07-11] MEDS ORDERED: methaDONE HCL 40 MG DISPERSABLE TABLET ONE (03:39)
[2021-07-11] MEDS: cloNIDine HCL 0.1 MG TABLET PO PRN ×2 (06:03→20:54)
[2021-07-11] MEDS: methaDONE 40 MG, methaDONE 30 MG PO SCH (06:04)
[2021-07-11] MEDS: NICOTINE 10 MG CARTRIDGE (INHALER) IH PRN ×3 (06:57→20:55)
[2021-07-11] MEDS: INSULIN SLIDING SCALE (NOVOLOG) 1 VIAL SQ SCH ×2 (07:11→16:32)
[2021-07-11] MEDS: ZONISAMIDE 100 MG CAPSULE PO SCH ×2 (07:20→20:54)
[2021-07-11] MEDS: amLODIPine BESYLATE 5 MG TABLET (FP) PO SCH (09:32)
[2021-07-11] MEDS: ATENOLOL 50 MG TABLET (FP) PO SCH (09:32)
[2021-07-11] MEDS: LISINOPRIL 10 MG TABLET PO SCH (09:32)
[2021-07-11] MEDS: NICOTINE 14 MG/24 HOURS TOPICAL PATCH TD SCH (09:32)
[2021-07-11] MEDS: LIDOCAINE 5% TOPICAL PATCH TP SCH (09:32)
[2021-07-11] MEDS: PRENATAL VITAMINS W/ FOLIC ACID TABLET (FP) PO SCH (09:32)
[2021-07-11] MEDS: ACETAMINOPHEN 325 MG TABLET (FP) PO PRN (09:34)
[2021-07-11] MEDS: SUVOREXANT 5 MG TABLET PO PRN (20:54)
[2021-07-11] MEDS: THIAMINE HCL 100 MG TABLET (FP) PO SCH (21:03)
[2021-07-11] MEDS: OLANZapine 7.5 MG TABLET PO SCH (21:04)
[2021-07-11] MEDS: LIDOCAINE PATCH REMOVAL MC SCH (21:04)
[2021-07-12] MEDS ORDERED: methaDONE HCL 10 MG TABLET ONE (03:33)
[2021-07-12] MEDS ORDERED: methaDONE HCL 40 MG DISPERSABLE TABLET ONE (03:33)
[2021-07-12] MEDS: cloNIDine HCL 0.1 MG TABLET PO PRN ×2 (06:05→22:02)
[2021-07-12] MEDS: INSULIN SLIDING SCALE (NOVOLOG) 1 VIAL SQ SCH ×2 (06:06→16:36)
[2021-07-12] MEDS: methaDONE 40 MG, methaDONE 30 MG PO SCH (06:06)
[2021-07-12] MEDS: ZONISAMIDE 100 MG CAPSULE PO SCH ×2 (07:40→22:03)
[2021-07-12] MEDS: PRENATAL VITAMINS W/ FOLIC ACID TABLET (FP) PO SCH (09:16)
[2021-07-12] MEDS: LIDOCAINE 5% TOPICAL PATCH TP SCH (09:16)
[2021-07-12] MEDS: amLODIPine BESYLATE 5 MG TABLET (FP) PO SCH (09:17)
[2021-07-12] MEDS: NICOTINE 14 MG/24 HOURS TOPICAL PATCH TD SCH (09:17)
[2021-07-12] MEDS: ATENOLOL 50 MG TABLET (FP) PO SCH (09:17)
[2021-07-12] MEDS: LISINOPRIL 10 MG TABLET PO SCH (09:17)
[2021-07-12] MEDS: ACETAMINOPHEN 325 MG TABLET (FP) PO PRN ×2 (09:18→22:05)
[2021-07-12] MEDS: THIAMINE HCL 100 MG TABLET (FP) PO SCH (22:01)
[2021-07-12] MEDS: OLANZapine 7.5 MG TABLET PO SCH (22:03)
[2021-07-12] MEDS: LIDOCAINE PATCH REMOVAL MC SCH (22:03)
[2021-07-12] MEDS: SUVOREXANT 10 MG TABLET PO PRN (22:05)
[2021-07-12] MEDS: NICOTINE 10 MG CARTRIDGE (INHALER) IH PRN (22:06)
[2021-07-13] MEDS ORDERED: methaDONE HCL 10 MG TABLET ONE (03:16)
[2021-07-13] MEDS ORDERED: methaDONE HCL 40 MG DISPERSABLE TABLET ONE (03:17)
[2021-07-13] MEDS: cloNIDine HCL 0.1 MG TABLET PO PRN ×2 (06:09→22:10)
[2021-07-13] MEDS: methaDONE 40 MG, methaDONE 30 MG PO SCH (06:09)
[2021-07-13] MEDS: INSULIN SLIDING SCALE (NOVOLOG) 1 VIAL SQ SCH ×2 (06:25→16:56)
[2021-07-13] MEDS: ZONISAMIDE 100 MG CAPSULE PO SCH ×2 (07:18→19:51)
[2021-07-13] MEDS: ACETAMINOPHEN 325 MG TABLET (FP) PO PRN (09:34)
[2021-07-13] MEDS: LIDOCAINE 5% TOPICAL PATCH TP SCH (09:34)
[2021-07-13] MEDS: PRENATAL VITAMINS W/ FOLIC ACID TABLET (FP) PO SCH (09:34)
[2021-07-13] MEDS: amLODIPine BESYLATE 5 MG TABLET (FP) PO SCH (09:34)
[2021-07-13] MEDS: ATENOLOL 50 MG TABLET (FP) PO SCH (09:35)
[2021-07-13] MEDS: NICOTINE 14 MG/24 HOURS TOPICAL PATCH TD SCH (09:35)
[2021-07-13] MEDS: LISINOPRIL 10 MG TABLET PO SCH (09:35)
[2021-07-13] MEDS: NICOTINE 10 MG CARTRIDGE (INHALER) IH PRN ×2 (10:38→22:16)
[2021-07-13] MEDS: THIAMINE HCL 100 MG TABLET (FP) PO SCH (22:10)
[2021-07-13] MEDS: LIDOCAINE PATCH REMOVAL MC SCH (22:10)
[2021-07-13] MEDS: OLANZapine 7.5 MG TABLET PO SCH (22:10)
[2021-07-13] MEDS: SUVOREXANT 10 MG TABLET PO PRN (22:14)
[2021-07-14] MEDS ORDERED: methaDONE HCL 10 MG TABLET ONE (03:21)
[2021-07-14] MEDS ORDERED: methaDONE HCL 40 MG DISPERSABLE TABLET ONE (03:21)
[2021-07-14] MEDS: cloNIDine HCL 0.1 MG TABLET PO PRN (05:51)
[2021-07-14] MEDS: methaDONE 40 MG, methaDONE 30 MG PO SCH (06:24)
[2021-07-14] MEDS: INSULIN SLIDING SCALE (NOVOLOG) 1 VIAL SQ SCH ×2 (06:25→16:59)
[2021-07-14] MEDS: ZONISAMIDE 100 MG CAPSULE PO SCH ×2 (06:46→18:53)
[2021-07-14] MEDS: ATENOLOL 50 MG TABLET (FP) PO SCH (10:38)
[2021-07-14] MEDS: PRENATAL VITAMINS W/ FOLIC ACID TABLET (FP) PO SCH (10:38)
[2021-07-14] MEDS: NICOTINE 14 MG/24 HOURS TOPICAL PATCH TD SCH (10:38)
[2021-07-14] MEDS: LISINOPRIL 10 MG TABLET PO SCH (10:39)
[2021-07-14] MEDS: amLODIPine BESYLATE 5 MG TABLET (FP) PO SCH (10:39)
[2021-07-14] MEDS: NICOTINE 10 MG CARTRIDGE (INHALER) IH PRN (10:40)
[2021-07-14] MEDS: LIDOCAINE 5% TOPICAL PATCH TP SCH (11:11)
[2021-07-14] MEDS ORDERED: METOPROLOL TARTRATE 25 MG TABLET (FP) PO ONE ×3 (20:45→23:51)
[2021-07-14] MEDS: THIAMINE HCL 100 MG TABLET (FP) PO SCH (21:00)
[2021-07-14] MEDS: OLANZapine 7.5 MG TABLET PO SCH (21:00)
[2021-07-14] MEDS: LIDOCAINE PATCH REMOVAL MC SCH (21:00)
[2021-07-14] MEDS: traZODone HCL 50 MG TABLET (FP) PO SCH (21:00)
[2021-07-14] MEDS ORDERED: QUEtiapine FUMARATE 100 MG TABLET (FP) PO SCH (22:00)
[2021-07-15] MEDS ORDERED: methaDONE HCL 10 MG TABLET ONE (04:20)
[2021-07-15] MEDS ORDERED: methaDONE HCL 40 MG DISPERSABLE TABLET ONE (04:20)
[2021-07-15] MEDS: methaDONE 40 MG, methaDONE 30 MG PO SCH (06:07)
[2021-07-15] MEDS ORDERED: cloNIDine HCL 0.1 MG TABLET PO ONE (06:54)
[2021-07-15] MEDS: INSULIN SLIDING SCALE (NOVOLOG) 1 VIAL SQ SCH ×2 (07:13→16:54)
[2021-07-15] MEDS: ZONISAMIDE 100 MG CAPSULE PO SCH ×2 (07:22→20:03)
[2021-07-15] MEDS: LIDOCAINE 5% TOPICAL PATCH TP SCH (11:00)
[2021-07-15] MEDS: NICOTINE 14 MG/24 HOURS TOPICAL PATCH TD SCH (11:01)
[2021-07-15] MEDS: PRENATAL VITAMINS W/ FOLIC ACID TABLET (FP) PO SCH (11:01)
[2021-07-15] MEDS: amLODIPine BESYLATE 5 MG TABLET (FP) PO SCH (11:02)
[2021-07-15] MEDS: ATENOLOL 50 MG TABLET (FP) PO SCH (11:02)
[2021-07-15] MEDS: LISINOPRIL 10 MG TABLET PO SCH (11:02)
[2021-07-15] MEDS: NICOTINE 10 MG CARTRIDGE (INHALER) IH PRN (11:17)
[2021-07-15] MEDS ORDERED: cloNIDine HCL 0.1 MG TABLET PO PRN (16:58)
[2021-07-15] MEDS: cloNIDine HCL 0.1 MG TABLET PO PRN (20:02)
[2021-07-15] MEDS: THIAMINE HCL 100 MG TABLET (FP) PO SCH (21:25)
[2021-07-15] MEDS: traZODone HCL 50 MG TABLET (FP) PO SCH (21:25)
[2021-07-15] MEDS: OLANZapine 7.5 MG TABLET PO SCH (21:25)
[2021-07-15] MEDS: LIDOCAINE PATCH REMOVAL MC SCH (21:25)
[2021-07-15] MEDS: SUVOREXANT 10 MG TABLET PO PRN (21:26)
[2021-07-16] MEDS ORDERED: methaDONE HCL 10 MG TABLET ONE (03:25)
[2021-07-16] MEDS ORDERED: methaDONE HCL 40 MG DISPERSABLE TABLET ONE (03:25)
[2021-07-16] MEDS: methaDONE 40 MG, methaDONE 30 MG PO SCH (06:00)
[2021-07-16] MEDS: INSULIN SLIDING SCALE (NOVOLOG) 1 VIAL SQ SCH ×2 (06:01→16:34)
[2021-07-16] MEDS: cloNIDine HCL 0.1 MG TABLET PO PRN ×2 (06:02→19:27)
[2021-07-16] MEDS: NICOTINE 10 MG CARTRIDGE (INHALER) IH PRN ×3 (06:18→22:03)
[2021-07-16] MEDS: ZONISAMIDE 100 MG CAPSULE PO SCH ×2 (07:43→19:28)
[2021-07-16] MEDS: LIDOCAINE 5% TOPICAL PATCH TP SCH (10:57)
[2021-07-16] MEDS: ATENOLOL 50 MG TABLET (FP) PO SCH (10:58)
[2021-07-16] MEDS: NICOTINE 14 MG/24 HOURS TOPICAL PATCH TD SCH (10:58)
[2021-07-16] MEDS: LISINOPRIL 10 MG TABLET PO SCH (10:58)
[2021-07-16] MEDS: amLODIPine BESYLATE 5 MG TABLET (FP) PO SCH (10:58)
[2021-07-16] MEDS: PRENATAL VITAMINS W/ FOLIC ACID TABLET (FP) PO SCH (10:58)
[2021-07-16] MEDS: ACETAMINOPHEN 325 MG TABLET (FP) PO PRN (14:16)
[2021-07-16] MEDS: traZODone HCL 50 MG TABLET (FP) PO SCH (22:01)
[2021-07-16] MEDS: THIAMINE HCL 100 MG TABLET (FP) PO SCH (22:01)
[2021-07-16] MEDS: LIDOCAINE PATCH REMOVAL MC SCH (22:01)
[2021-07-16] MEDS: OLANZapine 7.5 MG TABLET PO SCH (22:01)
[2021-07-16] MEDS: SUVOREXANT 10 MG TABLET PO PRN (22:02)
[2021-07-17] MEDS ORDERED: methaDONE HCL 40 MG DISPERSABLE TABLET ONE (06:24)
[2021-07-17] MEDS: methaDONE 40 MG, methaDONE 30 MG PO SCH (06:24)
[2021-07-17] MEDS: cloNIDine HCL 0.1 MG TABLET PO PRN ×2 (06:24→20:39)
[2021-07-17] MEDS ORDERED: methaDONE HCL 10 MG TABLET ONE (06:24)
[2021-07-17] MEDS: INSULIN SLIDING SCALE (NOVOLOG) 1 VIAL SQ SCH ×2 (06:25→17:31)
[2021-07-17] MEDS: ZONISAMIDE 100 MG CAPSULE PO SCH ×2 (06:59→20:39)
[2021-07-17] MEDS: COLLOIDAL OATMEAL 1 BAR EACH TP PRN (07:42)
[2021-07-17] MEDS: LIDOCAINE 5% TOPICAL PATCH TP SCH (10:26)
[2021-07-17] MEDS: NICOTINE 14 MG/24 HOURS TOPICAL PATCH TD SCH (10:26)
[2021-07-17] MEDS: LISINOPRIL 10 MG TABLET PO SCH (10:27)
[2021-07-17] MEDS: amLODIPine BESYLATE 5 MG TABLET (FP) PO SCH (10:27)
[2021-07-17] MEDS: PRENATAL VITAMINS W/ FOLIC ACID TABLET (FP) PO SCH (10:27)
[2021-07-17] MEDS: ATENOLOL 50 MG TABLET (FP) PO SCH (10:27)
[2021-07-17] MEDS: ACETAMINOPHEN 325 MG TABLET (FP) PO PRN (10:27)
[2021-07-17] MEDS: NICOTINE 10 MG CARTRIDGE (INHALER) IH PRN ×2 (13:09→21:13)
[2021-07-17] MEDS ORDERED: PT OWN MED DRAWER 7, Y5N ONE ×2 (17:20→20:29)
[2021-07-17] MEDS: SUVOREXANT 10 MG TABLET PO PRN (21:07)
[2021-07-17] MEDS: traZODone HCL 50 MG TABLET (FP) PO SCH (21:07)
[2021-07-17] MEDS: THIAMINE HCL 100 MG TABLET (FP) PO SCH (21:07)
[2021-07-17] MEDS: LIDOCAINE PATCH REMOVAL MC SCH (21:08)
[2021-07-17] MEDS: OLANZapine 7.5 MG TABLET PO SCH (21:08)
[2021-07-18] MEDS ORDERED: methaDONE HCL 10 MG TABLET ONE (05:34)
[2021-07-18] MEDS ORDERED: methaDONE HCL 40 MG DISPERSABLE TABLET ONE (05:34)
[2021-07-18] MEDS: cloNIDine HCL 0.1 MG TABLET PO PRN ×2 (06:20→20:49)
[2021-07-18] MEDS: methaDONE 40 MG, methaDONE 30 MG PO SCH (06:20)
[2021-07-18] MEDS: INSULIN SLIDING SCALE (NOVOLOG) 1 VIAL SQ SCH ×2 (07:37→17:56)
[2021-07-18] MEDS: ZONISAMIDE 100 MG CAPSULE PO SCH ×2 (07:37→20:49)
[2021-07-18] MEDS: LIDOCAINE 5% TOPICAL PATCH TP SCH (10:32)
[2021-07-18] MEDS: PRENATAL VITAMINS W/ FOLIC ACID TABLET (FP) PO SCH (10:33)
[2021-07-18] MEDS: LISINOPRIL 10 MG TABLET PO SCH (10:33)
[2021-07-18] MEDS: amLODIPine BESYLATE 5 MG TABLET (FP) PO SCH (10:33)
[2021-07-18] MEDS: NICOTINE 14 MG/24 HOURS TOPICAL PATCH TD SCH (10:33)
[2021-07-18] MEDS: ATENOLOL 50 MG TABLET (FP) PO SCH (10:33)
[2021-07-18] MEDS: NICOTINE 10 MG CARTRIDGE (INHALER) IH PRN ×2 (10:34→21:16)
[2021-07-18] MEDS: THIAMINE HCL 100 MG TABLET (FP) PO SCH (21:15)
[2021-07-18] MEDS: OLANZapine 7.5 MG TABLET PO SCH (21:15)
[2021-07-18] MEDS: traZODone HCL 50 MG TABLET (FP) PO SCH (21:15)
[2021-07-18] MEDS: LIDOCAINE PATCH REMOVAL MC SCH (21:16)
[2021-07-19] MEDS ORDERED: methaDONE HCL 40 MG DISPERSABLE TABLET ONE (04:04)
[2021-07-19] MEDS ORDERED: methaDONE HCL 10 MG TABLET ONE (04:04)
[2021-07-19] MEDS: methaDONE 40 MG, methaDONE 30 MG PO SCH (06:07)
[2021-07-19] MEDS: cloNIDine HCL 0.1 MG TABLET PO PRN ×2 (06:08→21:42)
[2021-07-19] MEDS: INSULIN SLIDING SCALE (NOVOLOG) 1 VIAL SQ SCH ×2 (07:20→16:35)
[2021-07-19] MEDS: ZONISAMIDE 100 MG CAPSULE PO SCH ×2 (07:21→21:42)
[2021-07-19] MEDS: LISINOPRIL 10 MG TABLET PO SCH (10:13)
[2021-07-19] MEDS: ATENOLOL 50 MG TABLET (FP) PO SCH (10:13)
[2021-07-19] MEDS: PRENATAL VITAMINS W/ FOLIC ACID TABLET (FP) PO SCH (10:13)
[2021-07-19] MEDS: LIDOCAINE 5% TOPICAL PATCH TP SCH (10:14)
[2021-07-19] MEDS: NICOTINE 14 MG/24 HOURS TOPICAL PATCH TD SCH (10:14)
[2021-07-19] MEDS: amLODIPine BESYLATE 5 MG TABLET (FP) PO SCH (10:15)
[2021-07-19] MEDS: ACETAMINOPHEN 325 MG TABLET (FP) PO PRN (10:16)
[2021-07-19] MEDS: NICOTINE 10 MG CARTRIDGE (INHALER) IH PRN ×2 (10:18→21:42)
[2021-07-19] MEDS: OLANZapine 7.5 MG TABLET PO SCH (21:42)
[2021-07-19] MEDS: traZODone HCL 50 MG TABLET (FP) PO SCH (21:42)
[2021-07-19] MEDS: THIAMINE HCL 100 MG TABLET (FP) PO SCH (21:42)
[2021-07-19] MEDS: SUVOREXANT 10 MG TABLET PO PRN (21:43)
[2021-07-20] MEDS: LIDOCAINE PATCH REMOVAL MC SCH ×2 (00:03→21:51)
[2021-07-20] MEDS ORDERED: methaDONE HCL 10 MG TABLET ONE (03:58)
[2021-07-20] MEDS ORDERED: methaDONE HCL 40 MG DISPERSABLE TABLET ONE (03:59)
[2021-07-20] MEDS: cloNIDine HCL 0.1 MG TABLET PO PRN ×2 (06:05→21:50)
[2021-07-20] MEDS: methaDONE 40 MG, methaDONE 30 MG PO SCH (06:05)
[2021-07-20] MEDS: INSULIN SLIDING SCALE (NOVOLOG) 1 VIAL SQ SCH ×2 (06:10→16:40)
[2021-07-20] MEDS: ZONISAMIDE 100 MG CAPSULE PO SCH ×2 (07:12→19:35)
[2021-07-20] MEDS: LISINOPRIL 10 MG TABLET PO SCH (09:57)
[2021-07-20] MEDS: NICOTINE 14 MG/24 HOURS TOPICAL PATCH TD SCH (09:57)
[2021-07-20] MEDS: amLODIPine BESYLATE 5 MG TABLET (FP) PO SCH (09:57)
[2021-07-20] MEDS: PRENATAL VITAMINS W/ FOLIC ACID TABLET (FP) PO SCH (09:57)
[2021-07-20] MEDS: LIDOCAINE 5% TOPICAL PATCH TP SCH (09:58)
[2021-07-20] MEDS: NICOTINE 10 MG CARTRIDGE (INHALER) IH PRN ×2 (09:58→16:40)
[2021-07-20] MEDS: ACETAMINOPHEN 325 MG TABLET (FP) PO PRN ×2 (09:59→15:11)
[2021-07-20] MEDS: ATENOLOL 50 MG TABLET (FP) PO SCH (10:57)
[2021-07-20] MEDS: OLANZapine 7.5 MG TABLET PO SCH (21:50)
[2021-07-20] MEDS: THIAMINE HCL 100 MG TABLET (FP) PO SCH (21:50)
[2021-07-20] MEDS: SUVOREXANT 10 MG TABLET PO PRN (21:50)
[2021-07-20] MEDS: traZODone HCL 50 MG TABLET (FP) PO SCH (21:50)
[2021-07-21] MEDS ORDERED: methaDONE HCL 10 MG TABLET ONE (03:32)
[2021-07-21] MEDS ORDERED: methaDONE HCL 40 MG DISPERSABLE TABLET ONE (03:32)
[2021-07-21] MEDS: methaDONE 40 MG, methaDONE 30 MG PO SCH (06:10)
[2021-07-21] MEDS: cloNIDine HCL 0.1 MG TABLET PO PRN (06:10)
[2021-07-21] MEDS: INSULIN SLIDING SCALE (NOVOLOG) 1 VIAL SQ SCH (06:12)
[2021-07-21] MEDS: ZONISAMIDE 100 MG CAPSULE PO SCH (06:54)
[2021-07-21 07:21] VITALS: TEMP 97.7
[2021-07-21] MEDS: NICOTINE 10 MG CARTRIDGE (INHALER) IH PRN (08:50)
[2021-07-21] MEDS: LIDOCAINE 5% TOPICAL PATCH TP SCH (09:10)
[2021-07-21] MEDS: LISINOPRIL 10 MG TABLET PO SCH (09:10)
[2021-07-21] MEDS: PRENATAL VITAMINS W/ FOLIC ACID TABLET (FP) PO SCH (09:10)
[2021-07-21] MEDS: NICOTINE 14 MG/24 HOURS TOPICAL PATCH TD SCH (09:11)
[2021-07-21] MEDS: ATENOLOL 50 MG TABLET (FP) PO SCH (09:11)
[2021-07-21] MEDS: amLODIPine BESYLATE 5 MG TABLET (FP) PO SCH (09:11)
[2021-07-21 09:18] VITALS: BP 168/90; PULSE 90
== END 2021-07-21 09:43 | disposition home or self-care (01) | DRG 772 ==
LOC: YASAS 18:01 → Y5N 19:13
PROVIDERS: ADMIT Allergy & Immunology; ATTEND Allergy & Immunology
PROC: HZ42ZZZ Group Counseling for Substance Abuse Treatment, Cognitive-Behavioral (ICD-10-PCS; principal; 2021-06-24)
DX: F14.20 Cocaine dependence, uncomplicated (principal); F11.20 Opioid dependence, uncomplicated; F10.20 Alcohol dependence, uncomplicated; F17.210 Nicotine dependence, cigarettes, uncomplicated; F31.9 Bipolar disorder, unspecified; F25.9 Schizoaffective disorder, unspecified; I10 Essential (primary) hypertension; J45.909 Unspecified asthma, uncomplicated; K21.9 Gastro-esophageal reflux disease without esophagitis; G47.00 Insomnia, unspecified; E11.9 Type 2 diabetes mellitus without complications; Z21 Asymptomatic human immunodeficiency virus [HIV] infection status; B18.2 Chronic viral hepatitis C; Z88.6 Allergy status to analgesic agent; Z88.8 Allergy status to other drugs, medicaments and biological substances; Z86.69 Personal history of other diseases of the nervous system and sense organs; Z79.4 Long term (current) use of insulin; Z86.19 Personal history of other infectious and parasitic diseases; Z56.0 Unemployment, unspecified; Z59.01 Sheltered homelessness
CPT/HCPCS: 36415; 80048; 80053; 81003; 82962; 85027; 86593; 86780; C9803; J0735; U0003; U0005